=== PATIENT | female | born 1985 | race Caucasian/White ===

== ENCOUNTER 2017-01-05 20:53 | Emergency (ER) | payer OTHER ==
[~2017-01-05] VITALS: Ht 147.3 cm; Wt 57.0 kg
[~2017-01-05 20:53] MED LIST: ALPR0.25 PO; CITA-104 PO; CITA20TA11 PO; DOXY100T20 PO; ELIM TOP; HYDR-3011 PO; LAMO100T83 PO; LAMO150T15 PO; LAMO200T18 PO; LEVO25TA59 PO
[2017-01-05 21:18] VITALS: Ht 147.3 cm; Wt 57.0 kg
== END 2017-01-05 23:38 | disposition left against medical advice (07) ==
LOC: FTE 20:53
DX: Z53.21 Procedure and treatment not carried out due to patient leaving prior to being seen by health care provider (principal)

== ENCOUNTER 2017-01-08 06:40 | Emergency (ER) | payer SELFPAY ==
[~2017-01-08] VITALS: Ht 152.4 cm; Wt 56.5 kg
[2017-01-08 06:42] VITALS: Ht 152.4 cm; Wt 56.5 kg
[2017-01-08] MEDS ORDERED: TRIMETHOPRIM/SULFAMETHOX (DS) TAB PO STA (07:11)
[2017-01-08] MEDS ORDERED: SULF1TAB31 PO (07:14)
[2017-01-08] MEDS ORDERED: LAMO100T83 PO (07:14)
[2017-01-08] MEDS ORDERED: LAMOTRIGINE 25 MG TAB PO STA (07:25)
--- NOTE | 2017-01-08 07:37 | ERD ---
ER Documentation Chief Complaint Date/Time DATE: 01/08/17 TIME: 07:37 Chief Complaint anxiety, facial lesions, med refill x 5 days HPI This is a 31-year-old female with medical history of anxiety presenting to the emergency department complaining of anxiety for the fact past 5 days since she ran out of her Lamictal. Patient states that she takes Lamictal 50 mg twice a day. Patient also states that she has lesions on her face that are painful, rating it moderate in severity. Patient denies any skin popping. She denies fevers, chest pain or shortness of breath ROS All systems reviewed and are negative except as per history of present illness. Medications Home Meds Active Scripts Lamotrigine* (Lamictal*) 100 Mg Tablet, 50 MG PO BID, #60 TAB Prov:IAIN LANDERS PA-C 01/08/17 Sulfamethoxazole/Trimethoprim* (Bactrim Ds* Tablet) 1 Each Tablet, 1 TAB PO BID , #20 TAB Prov:IAIN LANDERS PA-C 01/08/17 Doxycycline Hyclate* (Doxycycline Hyclate*) 100 Mg Tablet.dr, 100 MG PO BID for 10 Days, TAB Prov:JORDAN GARCIA MD 05/03/16 Citalopram Hydrobromide* (Citalopram Hydrobromide*) 40 Mg Tablet, 40 MG PO DAILY , #30 TAB Prov:JORDAN GARCIA MD 05/03/16 Citalopram Hydrobromide* (Celexa*) 20 Mg Tablet, 20 MG PO DAILY, #30 TAB Prov:JORDAN GARCIA MD 05/03/16 Lamotrigine* (Lamictal*) 200 Mg Tablet, 200 MG PO BID for 30 Days, TAB Prov:JORDAN GARCIA MD 05/03/16 Hydroxyzine Hcl* (Hydroxyzine Hcl*) 25 Mg Tablet, 25 MG PO Q8H Y for ITCHING, # 30 TAB Prov:ESTEFANÍA HERRERA MD 12/23/15 Permethrin* (Elimite*) 5% Cr, 1 APPLIC TOP ONCE, #1 TUB Prov:ESTEFANÍA HERRERA MD 12/23/15 Reported Medications Alprazolam* (Xanax*) 0.25 Mg Tablet, 0.25 MG PO BID, TAB 12/23/15 Lamotrigine* (Lamictal*) 100 Mg Tablet, 200 MG PO BID, TAB 11/15/14 Citalopram Hydrobromide* (Citalopram Hydrobromide*) 40 Mg Tablet, 40 MG PO DAILY , TAB 11/15/14 Citalopram Hydrobromide* (Celexa*) 20 Mg Tablet, 20 MG PO DAILY, TAB 11/15/14 Levothyroxine Sodium* (Synthroid*) 25 Mcg Tablet, 25 MCG PO DAILY, TAB 06/03/14 Lamotrigine* (Lamictal*) 150 Mg Tablet, 375 MG PO DAILY, TAB 06/03/14 Allergies Allergies: Coded Allergies: No Known Allergy (Unverified , 12/23/15) PMhx/Soc History of Surgery: Yes (c/section x 2 ) Anesthesia Reaction: No Hx Neurological Disorder: Yes (FIBROMYALGIA) Hx Respiratory Disorders: No Hx Cardiac Disorders: No Hx Psychiatric Problems: Yes (ANXIETY AND DEPRESSION) Hx Miscellaneous Medical Probl: Yes (hypothyroidism) Hx Alcohol Use: No Hx Substance Use: No Hx Tobacco Use: Yes Smoking Status: Current every day smoker Physical Exam Vitals Vital Signs Date Time Temp Pulse Resp B/P Pulse Ox O2 Delivery O2 Flow Rate FiO2 01/08/17 06:42 97.7 91 19 117/72 99 Physical Exam General: WD/WN, in no apparent distress, non-toxic appearing HENT: NC/AT Eyes: Conjunctiva normal Neck: Supple Pulm: Clear to auscultation, normal labored breathing; no wheezing/rales/ rhonchi heard CV: Good capillary refill GI: Non-distended, no guarding Back: No masses Ext: No clubbing, cyanosis, or edema Neuro: Moves on all fours Skin: Erythematous papules on face Normal turgor, color, and temperature. No ulcerations or rashes noted. Psych: Clinically anxious Results 24 hrs Current Medications Medications (Trade) Dose Ordered Sig/Russell Route PRN Reason Start Time Stop Time Status Last Admin Dose Admin Trimethoprim/ Sulfamethoxazole (Bactrim (Ds)) 1 tab ONCE STAT PO 01/08/17 07:11 01/08/17 07:12 DC 01/08/17 07:22 Lamotrigine (Lamictal) 50 mg ONCE STAT PO 01/08/17 07:25 01/08/17 07:26 DC Procedures/MDM This is a 31-year-old female who is homeless presenting to the emergency department with a history of anxiety complaining of anxiety for the past 5 days since she ran out of her Lamictal 50 mg twice daily. I have refilled her prescription for her. Patient also complains of lesions on her face that are consistent with folliculitis and pimple popping. There was no evidence of facial cellulitis, lymphangitis. Patient states that usually Bactrim works for her skin issues in the past. Patient states that she has issues with money and I have looked up the $4 prescriptions from [employer] and Doxycycline is not one of the medications listed, I have given her 1 week supply for Bactrim DS. I discussed with patient to return to the ER for any worsening sinus symptoms. Discussed to follow-up with primary care physician. She understands and agrees with this plan Departure Diagnosis: Primary Impression: Anxiety Additional Impressions: Folliculitis Medication refill Condition: Stable Patient Instructions: Taking Medicine Safely, Your Body's Response to Anxiety, Anxiety Reaction, Folliculitis Additional Instructions: FOLLOW UP WITH YOUR PRIMARY CARE PHYSICIAN TOMORROW.Return to this facility if you are not improving as expected. Take all medicines as directed. Return to this facility if you are not improving as expected. IAIN LANDERS PA-C Jan 08, 2017 07:37
== END 2017-01-08 07:44 | disposition home or self-care (01) ==
LOC: FTE 06:40
DX: F41.9 Anxiety disorder, unspecified (principal); L73.9 Follicular disorder, unspecified; E03.9 Hypothyroidism, unspecified; F17.210 Nicotine dependence, cigarettes, uncomplicated; Z76.0 Encounter for issue of repeat prescription
CPT/HCPCS: 99284

== ENCOUNTER 2017-11-09 11:53 | Emergency (ER) | END 2017-11-09 12:10 | disposition home or self-care (01) ==

== ENCOUNTER 2017-11-27 02:51 | Emergency (ER) | END 2017-11-27 04:39 | disposition left against medical advice (07) ==

== ENCOUNTER 2018-01-19 09:44 | Emergency (ER) | END 2018-01-19 16:55 | disposition left against medical advice (07) ==

== ENCOUNTER 2018-03-11 00:40 | Emergency (ER) | END 2018-03-11 04:00 | disposition left against medical advice (07) ==

== ENCOUNTER 2018-03-19 00:08 | Emergency (ER) | END 2018-03-19 02:24 | disposition home or self-care (01) ==

== ENCOUNTER 2018-04-16 11:56 | Emergency (ER) | END 2018-04-16 13:03 | disposition home or self-care (01) ==

== ENCOUNTER 2018-05-13 23:30 | Emergency (ER) | END 2018-05-14 00:52 | disposition home or self-care (01) ==

== ENCOUNTER 2018-05-20 10:11 | Emergency (ER) | END 2018-05-20 12:03 | disposition home or self-care (01) ==

== ENCOUNTER 2018-06-03 14:54 | Emergency (ER) | END 2018-06-03 15:59 | disposition home or self-care (01) ==

== ENCOUNTER 2018-06-15 03:29 | Emergency (ER) | END 2018-06-15 06:00 | disposition home or self-care (01) ==

== ENCOUNTER 2018-06-26 00:08 | Emergency (ER) | END 2018-06-26 01:08 | disposition home or self-care (01) ==

== ENCOUNTER 2018-07-09 23:21 | Emergency (ER) | END 2018-07-10 04:15 | disposition left against medical advice (07) ==

== ENCOUNTER 2018-07-19 16:34 | Emergency (ER) | payer OTHER ==
[~2018-07-19] VITALS: Ht 157.5 cm; Wt 56.0 kg
[~2018-07-19 16:34] MED LIST changes: +BACITUD TOP; +CEPH-443 PO; -CITA-104 PO; +CITA40TA6 PO; +FLUC150T PO; +FLUC150T41 PO; -HYDR-3011 PO; +HYDR-843 PO; +HYDR50TA15 PO; -LAMO150T15 PO; +LAMO150T3 PO; -LAMO200T18 PO; +LAMO200T3 PO; +LAMO25TA PO; +LAMO50TA PO; +LEVO25TA PO; -LEVO25TA59 PO; +LORA-186 PO; +LORA10CA9 PO; +MICO100S4 VG; +MICO45CR73 VG; +MUPI22OI2 TOP; +ONDA4TAB8 PO; +SULF1TAB31 PO
[2018-07-19 16:39] VITALS: BP 120/78; PULSE 100; RESP 18; Ht 157.5 cm; Wt 56.0 kg
[2018-07-19] MEDS ORDERED: LAMOTRIGINE 100 MG TAB PO ONE (19:00)
[2018-07-19] MEDS ORDERED: LAMO100T83 PO (19:27)
--- NOTE | 2018-07-19 19:43 | ERD ---
ER Documentation Chief Complaint Chief Complaint LAMICTAL MED REFILL REQUEST HPI 33-year-old female patient with a past medical history of depression presents to ED wanting a medication refill for Lamictal. Reports that she is unable to get a doctor's appointment during the holidays. States that she takes Lamictal 100 mg daily. States that she has been on it for the last 15 years. Denies any chest pain, shortness of breath, nausea, vomiting, diarrhea, neck stiffness. Denies any suicidal or homicidal ideations. ROS All systems reviewed and are negative except as per history of present illness. Medications Home Meds Active Scripts Lamotrigine* (Lamictal*) 100 Mg Tablet, 100 MG PO DAILY, #20 TAB Prov:CLAUDIA ALCANTARA PA-C 07/19/18 Sulfamethoxazole/Trimethoprim* (Bactrim Ds* Tablet) 1 Each Tablet, 1 TAB PO BID, #14 TAB Prov:ESTEFANÍA HERRERA MD 07/10/18 Cephalexin* (Keflex*) 500 Mg Capsule, 500 MG PO QID for 7 Days, CAP Prov:ESTEFANÍA HERRERA MD 07/10/18 Loratadine (Loratadine) 10 Mg Capsule, 10 MG PO DAILY, #30 CAP Prov:PASILAPRISCILA BURT 06/26/18 Hydroxyzine Hcl* (Hydroxyzine Hcl*) 50 Mg Tablet, 50 MG PO Q6H PRN for ITCHING, #30 TAB Prov:PASPRISCILA RODRIGUEZ 06/26/18 Lamotrigine* (Lamictal*) 100 Mg Tablet, 100 MG PO DAILY, #14 TAB Prov:PRISCILA RIGGS 06/26/18 Cephalexin* (Keflex*) 500 Mg Capsule, 500 MG PO QID for 5 Days, CAP Prov:LORY BARRIOS PA-C 06/15/18 Doxycycline Hyclate* (Doxycycline Hyclate*) 100 Mg Tablet.dr, 100 MG PO BID for 7 Days, TAB Prov:WALTER COBIAN PA-C 06/03/18 Lamotrigine* (Lamictal*) 100 Mg Tablet, 100 MG PO DAILY for 20 Days, TAB Prov:WALTER COBIAN PA-C 05/20/18 Ondansetron Hcl* (Zofran*) 4 Mg Tablet, 4 MG PO Q6H for NAUSEA AND/OR VOMITING, #30 TAB Prov:KENDRICK COBIANABIODUN MCKEONC 05/20/18 Loratadine* (Claritin*) 10 Mg Tablet, 10 MG PO DAILY for 20 Days, TAB Prov:WALTER OCBIAN Adan MCKEONC 05/20/18 Fluconazole* (Diflucan*) 150 Mg Tablet, 150 MG PO ONCE, #1 TAB Prov:TYRONEONDINA DRAPER 05/14/18 Mupirocin* (Bactroban*) 2% -22 Gram Oint...g., 1 APPLIC TOP BID for 7 Days, EA Prov:TYRONEONDINA PA-C 05/14/18 Permethrin* (Elimite*) 5% Cr, 1 APPLIC TOP ONCE PRN for use as directed, #1 TUB Prov:TYRONEONDINA PA-C 05/14/18 Lamotrigine* (Lamictal* XR) 50 Mg Tab.er.24, 50 MG PO DAILY for 15 Days, TAB Prov:KENDRICK COBIANABIODUN MCKEONC 04/16/18 Bacitracin* (Bacitracin Oint (UD)*) 1 Applic Oint, 1 APPLIC TOP ONCE, #10 PKT APPLY TO Prov:KENDRICK COBIANABIODUN MCKEONC 04/16/18 Miconazole Nitrate (Miconazole 7) 100 Mg Supp.vag, 100 MG VG QHS, #7 SUPP.VAG Prov:DERICK RIGGINS PA-C 03/19/18 Fluconazole* (Diflucan*) 150 Mg Tablet, 150 MG PO ONCE, #1 TAB Prov:DERICK RIGGINS PA-C 03/19/18 Cephalexin* (Keflex*) 500 Mg Capsule, 500 MG PO QID for 7 Days, CAP Prov:DERICK RIGGINS PA-C 03/19/18 Sulfamethoxazole/Trimethoprim* (Bactrim Ds* Tablet) 1 Each Tablet, 1 TAB PO BID, #14 TAB Prov:DERICK RIGGINS PA-C 03/19/18 Lamotrigine* (Lamictal* ODT) 25 Mg Tab.rapdis, 50 MG PO BID, #40 TAB Prov:DERICK RIGGINS PA-C 03/19/18 Lamotrigine* (Lamictal* XR) 50 Mg Tab.er.24, 50 MG PO DAILY, #15 TAB Prov:ESTEFANÍA HERRERA MD 01/09/18 Fluconazole* (Fluconazole*) 150 Mg Tablet, 150 MG PO DAILY, #1 TAB Prov:DERICK RIGGINS PA-C 11/09/17 Lamotrigine* (Lamictal* XR) 50 Mg Tab.er.24, 50 MG PO DAILY, #60 TAB Prov:DERICK RIGGINS PA-C 11/09/17 Miconazole Nitrate (Miconazole-7) 45 Gm Cr, 1 APPLIC VG QHS, #1 KIT Prov:DERICK RIGGINS PA-C 11/09/17 Lamotrigine* (Lamictal*) 100 Mg Tablet, 50 MG PO BID, #60 TAB Prov:IAIN LANDERS PA-C 01/08/17 Sulfamethoxazole/Trimethoprim* (Bactrim Ds* Tablet) 1 Each Tablet, 1 TAB PO BID, #20 TAB Prov:IAIN LANDERS PA-C 01/08/17 Doxycycline Hyclate* (Doxycycline Hyclate*) 100 Mg Tablet.dr, 100 MG PO BID for 10 Days, TAB Prov:JORDAN GARCIA MD 05/03/16 Citalopram Hydrobromide* (Citalopram Hydrobromide*) 40 Mg Tablet, 40 MG PO ASTER Y, #30 TAB Prov:JORDAN GARCIA MD 05/03/16 Citalopram Hydrobromide* (Celexa*) 20 Mg Tablet, 20 MG PO DAILY, #30 TAB Prov:JORDAN GARCIA MD 05/03/16 Lamotrigine* (Lamictal*) 200 Mg Tablet, 200 MG PO BID for 30 Days, TAB Prov:JORDAN GARCIA MD 05/03/16 Hydroxyzine Hcl* (Hydroxyzine Hcl*) 25 Mg Tablet, 25 MG PO Q8H PRN for ITCHING, #30 TAB Prov:ESTEFANÍA HERRERA MD 12/23/15 Permethrin* (Elimite*) 5% Cr, 1 APPLIC TOP ONCE, #1 TUB Prov:ESTEFANÍA HERRERA MD 12/23/15 Reported Medications Alprazolam* (Xanax*) 0.25 Mg Tablet, 0.25 MG PO BID, TAB 12/23/15 Lamotrigine* (Lamictal*) 100 Mg Tablet, 200 MG PO BID, TAB 11/15/14 Citalopram Hydrobromide* (Citalopram Hydrobromide*) 40 Mg Tablet, 40 MG PO DAILY, TAB 11/15/14 Citalopram Hydrobromide* (Celexa*) 20 Mg Tablet, 20 MG PO DAILY, TAB 11/15/14 Levothyroxine Sodium* (Synthroid*) 25 Mcg Tablet, 25 MCG PO DAILY, TAB 06/03/14 Lamotrigine* (Lamictal*) 150 Mg Tablet, 375 MG PO DAILY, TAB 06/03/14 Allergies Allergies: Coded Allergies: clindamycin (Verified Allergy, Unknown, 01/09/18) PMhx/Soc History of Surgery: Yes (c section) Anesthesia Reaction: No Hx Neurological Disorder: No Hx Respiratory Disorders: No Hx Cardiac Disorders: No Hx Psychiatric Problems: Yes (Psychiatric disorders) Hx Miscellaneous Medical Probl: No Hx Alcohol Use: No Hx Substance Use: Yes (History of heroin abuse, currently enrolled in ) Hx Tobacco Use: No Smoking Status: Never smoker FmHx Family History: No diabetes, No coronary disease Physical Exam Vitals Vital Signs Date Temp Pulse Resp B/P (MAP) Pulse Ox O2 O2 Flow FiO2 Time Delivery Rate 07/19/18 98.6 100 18 120/78 99 16:39 (92) Physical Exam Const: Aau-dns-gswipryny, well-nourished. In no acute distress. Head: Atraumatic, normocephalic Eyes: Normal Conjunctiva without injection ENT: Normal external ear, nose and mouth. Neck: Full range of motion. No meningismus. Resp: Clear to auscultation bilaterally. No wheezing, rhonchi, rales, or broomcorn scraper ckles. No accessory muscle use. No retractions. Cardio: Regular rate and rhythm, no murmurs Skin: No petechiae or rashes Back: No midline tenderness. No CVA tenderness. Ext: No cyanosis, or edema. Cap refill less than 2 seconds. Distal pulses intact bilaterally. Neur: Awake and alert. Normal gait and coordination. Muscle strength 5/5. Sensation intact bilaterally. Psych: Normal Mood and Affect Results 24 hrs Current Medications Medications Dose Sig/Russell Start Time Status Last (Trade) Ordered Route PRN Stop Time Admin Dose Reason Admin Lamotrigine 100 mg ONCE ONCE 07/19/18 DC 07/19/18 (Lamictal) PO 19:00 19:39 07/19/18 19:01 Procedures/MDM 33-year-old female patient with no significant past medical history presents to the ED complaining of wanting a medication refill for her Lamictal. Patient is afebrile and nontoxic-appearing. Patient was given 1 dose of Lamictal 400 mg here in the ED. Low suspicion for acute myocardial infarction, pneumothorax, pericarditis, myocarditis, endocarditis, pneumonia, cardiac tamponade, pulmonary embolism, pleural effusion, AAA, aortic dissection, Boerhaave's syndrome, cardiac dysrhythmias,meningitis, intracranial bleed, seizure, stroke, TIA or other emergent conditions. Diagnosis: Encounter for medication refill Discharge medications: Lamictal Follow up with primary care physician in 1-2 days. Instructed patient to return to the ED sooner for any worsening symptoms. Patient's questions were answered. Patient is hemodynamically stable. Patient understood and agreed with discharge plan. Patient discharged stable. Disclaimer: Inadvertent spelling and grammatical errors are likely due to EHR/dictation software use and do not reflect on the overall quality of patient care. Also, please note that the electronic time recorded on this note does not necessarily reflect the actual time of the patient encounter. Departure Diagnosis: Primary Impression: Encounter for medication refill Condition: Stable Patient Instructions: Taking Medicine Safely Referrals: [facility] (PCP) [facility] YOU HAVE RECEIVED A MEDICAL SCREENING EXAM AND THE RESULTS INDICATE THAT YOU DO NOT HAVE A CONDITION THAT REQUIRES URGENT TREATMENT IN THE EMERGENCY DEPARTMENT. FURTHER EVALUATION AND TREATMENT OF YOUR CONDITION CAN WAIT UNTIL YOU ARE SEEN IN YOUR DOCTORS OFFICE WITHIN THE NEXT 1-2 DAYS. IT IS YOUR RESPONSIBILITY TO MAKE AN APPOINTMENT FOR FOLOW-UP CARE. IF YOU HAVE A PRIMARY DOCTOR --you should call your primary doctor and schedule an appointment IF YOU DO NOT HAVE A PRIMARY DOCTOR YOU CAN CALL OUR PHYSICIAN REFERRAL HOTLINE AT IF YOU CAN NOT AFFORD TO SEE A PHYSICIAN YOU CAN CHOSE FROM THE FOLLOWING [facility] CLINICS [facility] [address] [place] [address] [facility] [address] [place] [address] [facility] [address] [facility] [address] [facility] [address] [facility]. [facility] [address] [facility]. [facility] YOU HAVE RECEIVED A MEDICAL SCREENING EXAM AND THE RESULTS INDICATE THAT YOU DO NOT HAVE A CONDITION THAT REQUIRES URGENT TREATMENT IN THE EMERGENCY DEPARTMENT. FURTHER EVALUATION AND TREATMENT OF YOUR CONDITION CAN WAIT UNTIL YOU ARE SEEN IN YOUR DOCTORS OFFICE WITHIN THE NEXT 1-2 DAYS. IT IS YOUR RESPONSIBILITY TO MAKE AN APPOINTMENT FOR FOLOW-UP CARE. IF YOU HAVE A PRIMARY DOCTOR --you should call your primary doctor and schedule and appointment IF YOU DO NOT HAVE A PRIMARY DOCTOR YOU CAN CALL OUR PHYSICIAN REFERRAL HOTLINE AT . IF YOU CAN NOT AFFORD TO SEE A PHYSICIAN YOU CAN CHOSE FROM THE FOLLOWING [facility]: [facility] [address] [place] [address] [facility] [address] [place] [address] [facility] [address] [place] [address] [facility] URGENT CARE/SPECIALTIES Additional Instructions: Call your primary care doctor TOMORROW for an appointment during the next 2-3 days.See the doctor sooner or return here if your condition worsens before your appointment time. CLAUDIA ALCANTARA PA-C Jul 19, 2018 19:43
== END 2018-07-19 19:41 | disposition home or self-care (01) ==
LOC: FTE 16:34
DX: Z76.0 Encounter for issue of repeat prescription (principal)
CPT/HCPCS: Z7502; Z7610; 99281

== ENCOUNTER 2018-08-14 12:33 | Emergency (ER) | payer OTHER ==
[~2018-08-14] VITALS: Ht 152.4 cm; Wt 58.0 kg
[2018-08-14 12:45] VITALS: Ht 152.4 cm; Wt 58.0 kg
[2018-08-14] MEDS ORDERED: MUPIROCIN 2% 22 GM OINT TOP ONE (14:30)
[2018-08-14] MEDS ORDERED: SULF1TAB31 PO (14:32)
[2018-08-14] MEDS ORDERED: CEPH-443 PO (14:32)
[2018-08-14] MEDS ORDERED: LAMO100T83 PO (15:08)
--- NOTE | 2018-08-14 20:29 | ERD ---
ER Documentation Chief Complaint Chief Complaint Lesion@ facial area HPI 33-year-old presents for left face skin lesion times 2 days. She denies any fevers. She denies any pain over the lesions. She also has history of bipolar disorder and requests refill on her Lamictal. No other complaints noted. ROS All systems reviewed and are negative except as per history of present illness. Medications Home Meds Active Scripts Diphenhydramine Hcl* (Benadryl*) 25 Mg Cap, 25 MG PO Q6 PRN for ITCHING/RASH, #30 TAB Prov:PRISCILA RIGGS F 08/18/18 Lamotrigine* (Lamictal*) 100 Mg Tablet, 100 MG PO DAILY for bipolar, #30 TAB Prov:MARIFERERMIAS GOULD 08/14/18 Sulfamethoxazole/Trimethoprim* (Bactrim Ds* Tablet) 1 Each Tablet, 1 TAB PO BID for 7 Days, #14 TAB Prov:ERMIAS CAICEDO DO 08/14/18 Cephalexin* (Keflex*) 500 Mg Capsule, 500 MG PO TID for skin infection for 7 Days, CAP Prov:ERMIAS CAICEDO DO 08/14/18 Lamotrigine* (Lamictal*) 100 Mg Tablet, 100 MG PO DAILY, #20 TAB Prov:CLAUDIA ALCANTARA PA-C 07/19/18 Sulfamethoxazole/Trimethoprim* (Bactrim Ds* Tablet) 1 Each Tablet, 1 TAB PO BID, #14 TAB Prov:ESTEFANÍA HERRERA MD 07/10/18 Cephalexin* (Keflex*) 500 Mg Capsule, 500 MG PO QID for 7 Days, CAP Prov:ESTEFANÍA HERRERA MD 07/10/18 Loratadine (Loratadine) 10 Mg Capsule, 10 MG PO DAILY, #30 CAP Prov:PASILAPRISCILA BURT F 06/26/18 Hydroxyzine Hcl* (Hydroxyzine Hcl*) 50 Mg Tablet, 50 MG PO Q6H PRN for ITCHING, #30 TAB Prov:ZACHARYILAPRISCILA BURT F 06/26/18 Lamotrigine* (Lamictal*) 100 Mg Tablet, 100 MG PO DAILY, #14 TAB Prov:PASILATONEY BURTAR F 06/26/18 Cephalexin* (Keflex*) 500 Mg Capsule, 500 MG PO QID for 5 Days, CAP Prov:LORY BARRIOS PA-C 06/15/18 Doxycycline Hyclate* (Doxycycline Hyclate*) 100 Mg Tablet.dr, 100 MG PO BID for 7 Days, TAB Prov:WALTER COBIAN PA-C 06/03/18 Lamotrigine* (Lamictal*) 100 Mg Tablet, 100 MG PO DAILY for 20 Days, TAB Prov:WALTER COBIAN PA-C 05/20/18 Ondansetron Hcl* (Zofran*) 4 Mg Tablet, 4 MG PO Q6H for NAUSEA AND/OR VOMITING, #30 TAB Prov:WALTER COBIAN PA-C 05/20/18 Loratadine* (Claritin*) 10 Mg Tablet, 10 MG PO DAILY for 20 Days, TAB Prov:WALTER COBIAN PA-C 05/20/18 Fluconazole* (Diflucan*) 150 Mg Tablet, 150 MG PO ONCE, #1 TAB Prov:ONDINA HANSEN PA-C 05/14/18 Mupirocin* (Bactroban*) 2% -22 Gram Oint...g., 1 APPLIC TOP BID for 7 Days, EA Prov:ONDINA HANSEN PA-C 05/14/18 Permethrin* (Elimite*) 5% Cr, 1 APPLIC TOP ONCE PRN for use as directed, #1 TUB Prov:ONDINA HANSEN PA-C 05/14/18 Lamotrigine* (Lamictal* XR) 50 Mg Tab.er.24, 50 MG PO DAILY for 15 Days, TAB Prov:WALTER COBIAN PA-C 04/16/18 Bacitracin* (Bacitracin Oint (UD)*) 1 Applic Oint, 1 APPLIC TOP ONCE, #10 PKT APPLY TO Prov:WALTER COBIAN PA-C 04/16/18 Miconazole Nitrate (Miconazole 7) 100 Mg Supp.vag, 100 MG VG QHS, #7 SUPP.VAG Prov:DERICK RIGGINS PA-C 03/19/18 Fluconazole* (Diflucan*) 150 Mg Tablet, 150 MG PO ONCE, #1 TAB Prov:DERICK RIGGINS PA-C 03/19/18 Cephalexin* (Keflex*) 500 Mg Capsule, 500 MG PO QID for 7 Days, CAP Prov:DERICK RIGGINS PA-C 03/19/18 Sulfamethoxazole/Trimethoprim* (Bactrim Ds* Tablet) 1 Each Tablet, 1 TAB PO BID, #14 TAB Prov:DERICK RIGGINS PA-C 03/19/18 Lamotrigine* (Lamictal* ODT) 25 Mg Tab.rapdis, 50 MG PO BID, #40 TAB Prov:DERICK RIGGINS PA-C 03/19/18 Lamotrigine* (Lamictal* XR) 50 Mg Tab.er.24, 50 MG PO DAILY, #15 TAB Prov:ESTEFANÍA HERRERA MD 01/09/18 Fluconazole* (Fluconazole*) 150 Mg Tablet, 150 MG PO DAILY, #1 TAB Prov:DERICK RIGGINS PA-C 11/09/17 Lamotrigine* (Lamictal* XR) 50 Mg Tab.er.24, 50 MG PO DAILY, #60 TAB Prov:DERICK RIGGINS PA-C 11/09/17 Miconazole Nitrate (Miconazole-7) 45 Gm Cr, 1 APPLIC VG QHS, #1 KIT Prov:DERICK RIGGINS PA-C 11/09/17 Lamotrigine* (Lamictal*) 100 Mg Tablet, 50 MG PO BID, #60 TAB Prov:IAIN LANDERS PA-C 01/08/17 Sulfamethoxazole/Trimethoprim* (Bactrim Ds* Tablet) 1 Each Tablet, 1 TAB PO BID, #20 TAB Prov:IAIN LANDERSC 01/08/17 Doxycycline Hyclate* (Doxycycline Hyclate*) 100 Mg Tablet.dr, 100 MG PO BID for 10 Days, TAB Prov:JORDAN GARCIA MD 05/03/16 Citalopram Hydrobromide* (Citalopram Hydrobromide*) 40 Mg Tablet, 40 MG PO DAILY, #30 TAB Prov:JORDAN GARCIA MD 05/03/16 Citalopram Hydrobromide* (Celexa*) 20 Mg Tablet, 20 MG PO DAILY, #30 TAB Prov:JORDAN GARCIA MD 05/03/16 Lamotrigine* (Lamictal*) 200 Mg Tablet, 200 MG PO BID for 30 Days, TAB Prov:JORDAN GARCIA MD 05/03/16 Hydroxyzine Hcl* (Hydroxyzine Hcl*) 25 Mg Tablet, 25 MG PO Q8H PRN for ITCHING, #30 TAB Prov:ESTEFANÍA HERRERA MD 12/23/15 Permethrin* (Elimite*) 5% Cr, 1 APPLIC TOP ONCE, #1 TUB Prov:ESTEFANÍA HERRERA MD 12/23/15 Reported Medications Alprazolam* (Xanax*) 0.25 Mg Tablet, 0.25 MG PO BID, TAB 12/23/15 Lamotrigine* (Lamictal*) 100 Mg Tablet, 200 MG PO BID, TAB 11/15/14 Citalopram Hydrobromide* (Citalopram Hydrobromide*) 40 Mg Tablet, 40 MG PO DAILY, TAB 11/15/14 Citalopram Hydrobromide* (Celexa*) 20 Mg Tablet, 20 MG PO DAILY, TAB 11/15/14 Levothyroxine Sodium* (Synthroid*) 25 Mcg Tablet, 25 MCG PO DAILY, TAB 06/03/14 Lamotrigine* (Lamictal*) 150 Mg Tablet, 375 MG PO DAILY, TAB 06/03/14 Allergies Allergies: Coded Allergies: clindamycin (Verified Allergy, Unknown, 01/09/18) PMhx/Soc History of Surgery: Yes (c section X 2) Anesthesia Reaction: No Hx Neurological Disorder: No Hx Respiratory Disorders: No Hx Cardiac Disorders: No Hx Psychiatric Problems: Yes (Psychiatric disorders/MOOD DISORDER) Hx Miscellaneous Medical Probl: No Hx Alcohol Use: No Hx Substance Use: Yes (History of heroin abuse, currently enrolled in .LAST WAS 3 MOS AGO) Hx Tobacco Use: No Physical Exam Vitals Vital Signs Date Temp Pulse Resp B/P (MAP) Pulse Ox O2 O2 Flow FiO2 Time Delivery Rate 08/14/18 97.0 98 19 115/76 100 12:45 (89) Physical Exam Const: No acute distress Neck: Full range of motion. No meningismus. Resp: Clear to auscultation bilaterally Cardio: Regular rate and rhythm, no murmurs Abd: Soft, non tender, non distended. Normal bowel sounds Skin: Multiple skin lesions noted, circular, small 0.5 cm abscess with mild underlying fluctuance Back: No midline or flank tenderness Ext: No cyanosis, or edema Neur: Awake and alert Psych: Normal Mood and Affect Results 24 hrs Current Medications Medications Dose Sig/Russell Start Time Status Last (Trade) Ordered Route PRN Stop Time Admin Dose Reason Admin Mupirocin 1 applic ONCE ONCE 08/14/18 DC (Bactroban) TOP 14:30 08/14/18 14:31 Procedures/MDM Medical Decision Making: Differential diagnosis includes but not limited to staph skin infection, abscess, contact dermatitis, atopic dermatitis Patient appeared well on physical exam. There is small several skin lesions on the patient's face consistent with staph infection. There is also a small 0.5 cm area with mild underlying fluctuance consistent with an abscess. The abscess was however too small to drain. A trial of antibiotics will be given. Patient agrees with plan. ED course: Patient skin lesions were irrigated and Bactroban applied Prescription(s): Patient given prescription for Bactrim and Keflex. Patient also given refill for her Lamictal for bipolar disorder. Patient advised to return to the ER in 48 hours for wound check. Patient advised to follow up with PCP in 1-2 days. Patient advised to return to ED for new or worsening symptoms. Patient stable on discharge from the ED. Disclaimer: Inadvertent spelling and grammatical errors are likely due to EHR/dictation software use and do not reflect on the overall quality of patient care. Also, please note that the electronic time recorded on this note does not necessarily reflect the actual time of the patient encounter. Departure Diagnosis: Primary Impression: Abscess Additional Impression: Staph infection Condition: Fair Patient Instructions: Abscess, Antiobiotic Treatment Only Additional Instructions: Call your primary care doctor TOMORROW for an appointment during the next 1-2 days.See the doctor sooner or return here if your condition worsens before your appointment time. Return in ED in 2 days for wound check ERMIAS CAICEDO DO Aug 14, 2018 20:29
== END 2018-08-14 15:05 | disposition home or self-care (01) ==
LOC: FTE 12:33
DX: L02.01 Cutaneous abscess of face (principal); B95.8 Unspecified staphylococcus as the cause of diseases classified elsewhere
CPT/HCPCS: Z7502; Z7610; 99283

== ENCOUNTER 2018-08-18 03:08 | Emergency (ER) | payer OTHER ==
[~2018-08-18] VITALS: Ht 152.4 cm; Wt 58.6 kg
[2018-08-18 03:12] VITALS: BP 131/91; PULSE 102; RESP 17; Ht 152.4 cm; Wt 58.6 kg
--- NOTE | 2018-08-18 04:04 | ERD ---
ER Documentation Chief Complaint Chief Complaint C/O ABSCESS ON LT CHECK AND RT ANKLE X3 DAYS, TOOTH ACHE X1 DAY HPI This is a 33-year-old female who presents emergency department with complaints of multiple sores. Stated that she was here 2 days ago and was prescribed with Keflex and Bactrim. LMP: 20 days ago. Denies possibility being . 82. Denies headache, head injury, loss of consciousness, dizziness, neck pain, neck stiffness, throat pain, difficulty swallowing, difficulty breathing lying flat, shoulder pain, chest pain, back pain, abdominal pain, nausea, vomiting, constipation, diarrhea, urinary symptoms, or possibility being , loss of bowel and bladder control, trauma, injury, falls, difficulty walking due to pain, numbness or tingling sensation, calf pain, recent travel, recent major surgery in the last 3 weeks, calf pain, recent long travel, recent exposure to any illness, recent antibiotic use in the last 3 months, fever, chills, seizures. Past medical history: Heroin use. Last heroin dose was couple of months ago. Surgical history: x2. Social: Denies smoking, use of alcoholic beverages, use of illegal drugs. ROS All systems reviewed and are negative except as per history of present illness. Medications Home Meds Active Scripts Diphenhydramine Hcl* (Benadryl*) 25 Mg Cap, 25 MG PO Q6 PRN for ITCHING/RASH, #30 TAB Prov:PRISCILA RIGGS 08/18/18 Lamotrigine* (Lamictal*) 100 Mg Tablet, 100 MG PO DAILY for bipolar, #30 TAB Prov:ERMIAS CAICEDO DO 08/14/18 Sulfamethoxazole/Trimethoprim* (Bactrim Ds* Tablet) 1 Each Tablet, 1 TAB PO BID for 7 Days, #14 TAB Prov:ERMIAS CAICEDO DO 08/14/18 Cephalexin* (Keflex*) 500 Mg Capsule, 500 MG PO TID for skin infection for 7 Days, CAP Prov:ERMIAS CAICEDO DO 08/14/18 Lamotrigine* (Lamictal*) 100 Mg Tablet, 100 MG PO DAILY, #20 TAB Prov:CLAUDIA ALCANTARA PA-C 07/19/18 Sulfamethoxazole/Trimethoprim* (Bactrim Ds* Tablet) 1 Each Tablet, 1 TAB PO BID, #14 TAB Prov:ESTEFANÍA HERRERA MD 07/10/18 Cephalexin* (Keflex*) 500 Mg Capsule, 500 MG PO QID for 7 Days, CAP Prov:ESTEFANÍA HERRERA MD 07/10/18 Loratadine (Loratadine) 10 Mg Capsule, 10 MG PO DAILY, #30 CAP Prov:ZACHARYILAPRISCILA BURT 06/26/18 Hydroxyzine Hcl* (Hydroxyzine Hcl*) 50 Mg Tablet, 50 MG PO Q6H PRN for ITCHING, #30 TAB Prov:PASILAPRISCILA BURT 06/26/18 Lamotrigine* (Lamictal*) 100 Mg Tablet, 100 MG PO DAILY, #14 TAB Prov:ZACHARYILAPRISCILA BURT 06/26/18 Cephalexin* (Keflex*) 500 Mg Capsule, 500 MG PO QID for 5 Days, CAP Prov:LORY BARRIOS PA-C 06/15/18 Doxycycline Hyclate* (Doxycycline Hyclate*) 100 Mg Tablet.dr, 100 MG PO BID for 7 Days, TAB Prov:WALTER COBIAN PA-C 06/03/18 Lamotrigine* (Lamictal*) 100 Mg Tablet, 100 MG PO DAILY for 20 Days, TAB Prov:WALTER COBIAN PA-C 05/20/18 Ondansetron Hcl* (Zofran*) 4 Mg Tablet, 4 MG PO Q6H for NAUSEA AND/OR VOMITING, #30 TAB Prov:WALTER COBIAN PA-C 05/20/18 Loratadine* (Claritin*) 10 Mg Tablet, 10 MG PO DAILY for 20 Days, TAB Prov:WALTER COBIAN PA-C 05/20/18 Fluconazole* (Diflucan*) 150 Mg Tablet, 150 MG PO ONCE, #1 TAB Prov:ONDINA HANSEN PA-C 05/14/18 Mupirocin* (Bactroban*) 2% -22 Gram Oint...g., 1 APPLIC TOP BID for 7 Days, EA Prov:ONDINA HANSEN PA-C 05/14/18 Permethrin* (Elimite*) 5% Cr, 1 APPLIC TOP ONCE PRN for use as directed, #1 TUB Prov:ONDINA HANSEN PA-C 05/14/18 Lamotrigine* (Lamictal* XR) 50 Mg Tab.er.24, 50 MG PO DAILY for 15 Days, TAB Prov:WALTER COBIAN PA-C 04/16/18 Bacitracin* (Bacitracin Oint (UD)*) 1 Applic Oint, 1 APPLIC TOP ONCE, #10 PKT APPLY TO Prov:WALTER COBIAN PA-C 04/16/18 Miconazole Nitrate (Miconazole 7) 100 Mg Supp.vag, 100 MG VG QHS, #7 SUPP.VAG Prov:DERICK RIGGINS PA-C 03/19/18 Fluconazole* (Diflucan*) 150 Mg Tablet, 150 MG PO ONCE, #1 TAB Prov:DERICK RIGGINS PA-C 03/19/18 Cephalexin* (Keflex*) 500 Mg Capsule, 500 MG PO QID for 7 Days, CAP Prov:DERICK RIGGINS PA-C 03/19/18 Sulfamethoxazole/Trimethoprim* (Bactrim Ds* Tablet) 1 Each Tablet, 1 TAB PO BID, #14 TAB Prov:DERICK RIGGINS PA-C 03/19/18 Lamotrigine* (Lamictal* ODT) 25 Mg Tab.rapdis, 50 MG PO BID, #40 TAB Prov:DERICK RIGGINS PA-C 03/19/18 Lamotrigine* (Lamictal* XR) 50 Mg Tab.er.24, 50 MG PO DAILY, #15 TAB Prov:ESTEFANÍA HERRERA MD 01/09/18 Fluconazole* (Fluconazole*) 150 Mg Tablet, 150 MG PO DAILY, #1 TAB Prov:DERICK RIGGINS PA-C 11/09/17 Lamotrigine* (Lamictal* XR) 50 Mg Tab.er.24, 50 MG PO DAILY, #60 TAB Prov:DERICK RIGGINS PA-C 11/09/17 Miconazole Nitrate (Miconazole-7) 45 Gm Cr, 1 APPLIC VG QHS, #1 KIT Prov:DERICK RIGGINS PA-C 11/09/17 Lamotrigine* (Lamictal*) 100 Mg Tablet, 50 MG PO BID, #60 TAB Prov:IAIN LANDERS PA-C 01/08/17 Sulfamethoxazole/Trimethoprim* (Bactrim Ds* Tablet) 1 Each Tablet, 1 TAB PO BID, #20 TAB Prov:IAIN LANDERS PA-C 01/08/17 Doxycycline Hyclate* (Doxycycline Hyclate*) 100 Mg Tablet.dr, 100 MG PO BID for 10 Days, TAB Prov:JORDAN GARCIA MD 05/03/16 Citalopram Hydrobromide* (Citalopram Hydrobromide*) 40 Mg Tablet, 40 MG PO DAILY, #30 TAB Prov:JORDAN GARCIA MD 05/03/16 Citalopram Hydrobromide* (Celexa*) 20 Mg Tablet, 20 MG PO DAILY, #30 TAB Prov:JORDAN GARCIA MD 05/03/16 Lamotrigine* (Lamictal*) 200 Mg Tablet, 200 MG PO BID for 30 Days, TAB Prov:JORDAN GARCIA MD 05/03/16 Hydroxyzine Hcl* (Hydroxyzine Hcl*) 25 Mg Tablet, 25 MG PO Q8H PRN for ITCHING, #30 TAB Prov:ESTEFANÍA HERRERA MD 12/23/15 Permethrin* (Elimite*) 5% Cr, 1 APPLIC TOP ONCE, #1 TUB Prov:ESTEFANÍA HERRERA MD 12/23/15 Reported Medications Alprazolam* (Xanax*) 0.25 Mg Tablet, 0.25 MG PO BID, TAB 12/23/15 Lamotrigine* (Lamictal*) 100 Mg Tablet, 200 MG PO BID, TAB 11/15/14 Citalopram Hydrobromide* (Citalopram Hydrobromide*) 40 Mg Tablet, 40 MG PO DAILY, TAB 11/15/14 Citalopram Hydrobromide* (Celexa*) 20 Mg Tablet, 20 MG PO DAILY, TAB 11/15/14 Levothyroxine Sodium* (Synthroid*) 25 Mcg Tablet, 25 MCG PO DAILY, TAB 06/03/14 Lamotrigine* (Lamictal*) 150 Mg Tablet, 375 MG PO DAILY, TAB 06/03/14 Allergies Allergies: Coded Allergies: clindamycin (Verified Allergy, Unknown, 01/09/18) PMhx/Soc History of Surgery: Yes (c section X 2) Anesthesia Reaction: No Hx Neurological Disorder: No Hx Respiratory Disorders: No Hx Cardiac Disorders: No Hx Psychiatric Problems: Yes (Psychiatric disorders/MOOD DISORDER) Hx Miscellaneous Medical Probl: No Hx Alcohol Use: No Hx Substance Use: Yes (History of heroin abuse, currently enrolled in AA.LAST WAS 3 MOS AGO) Hx Tobacco Use: No Physical Exam Vitals Vital Signs Date Temp Pulse Resp B/P (MAP) Pulse Ox O2 O2 Flow FiO2 Time Delivery Rate 08/18/18 97.6 102 17 131/91 100 03:12 (104) Physical Exam Const: No acute distress Head: Atraumatic Eyes: Normal Conjunctiva ENT: Normal External Ears, Nose and Mouth. Neck: Full range of motion. No meningismus. Resp: Clear to auscultation bilaterally Cardio: Regular rate and rhythm, no murmurs Abd: Soft, non tender, non distended. Normal bowel sounds Skin: No petechiae or rashes. Multiple circular sores noted to bilateral lower extremities that has yellowish at the middle. No induration. Back: No midline or flank tenderness Ext: No cyanosis, or edema Neur: Awake and alert. No neurological deficits. Psych: Normal Mood and Affect Results 24 hrs Current Medications Medications Dose Sig/Russell Start Time Status Last (Trade) Ordered Route PRN Stop Time Admin Dose Reason Admin Ceftriaxone 1 gm ONCE ONCE 08/18/18 DC 08/18/18 Sodium IM 04:30 04:20 (Rocephin) 08/18/18 04:30 Lidocaine 20 ml ONCE ONCE 08/18/18 DC 08/18/18 (Xylocaine SC 04:30 04:20 1% (Mdv) 20 08/18/18 04:30 ml) Procedures/MDM Diagnostic tests: Clinical exam. Treatment: Ceftriaxone IM. Re-evaluation: No allergic reaction noted. Differential diagnosis I have low suspicion for sepsis, severe serious bacterial infection, shingles, Barber-Pro syndrome. Final diagnosis: Skin infection. Prescription: Continue taking your Bactrim and Keflex at home. Follow-up with PCP in the next 24-48 hours. Continue to take your Bactrim and Keflex at home. Come back here in the emergency department for any new symptoms or any worsening symptoms. All questions and concerns were answered. Patient and family members verbalized understanding and agreed with plan of care. Hemodynamically stable on discharge. Departure Diagnosis: Primary Impression: Multiple complaints Additional Impression: Skin infection Condition: Stable Additional Instructions: Follow-up with PCP in the next 24-48 hours. Continue to take your Bactrim and Keflex at home. Come back here in the emergency department for any new symptoms or any worsening symptoms. PRISCILA RIGGS Aug 18, 2018 04:04
[2018-08-18] MEDS ORDERED: BEN25 PO (04:13)
[2018-08-18] MEDS ORDERED: CEFTRIAXONE 1 GM INJ IM ONE (04:30)
[2018-08-18] MEDS ORDERED: LIDOCAINE 1% (MDV) 20 ML INJ SC ONE (04:30)
== END 2018-08-18 04:22 | disposition home or self-care (01) ==
LOC: FTE 03:08
DX: K08.89 Other specified disorders of teeth and supporting structures (principal); L08.9 Local infection of the skin and subcutaneous tissue, unspecified; L02.415 Cutaneous abscess of right lower limb; L02.01 Cutaneous abscess of face
CPT/HCPCS: 96372; J0696; Z7502; Z7610

== ENCOUNTER 2018-09-22 15:48 | Emergency (ER) | payer SELFPAY ==
[~2018-09-22] VITALS: Wt 58.2 kg
[~2018-09-22 15:48] MED LIST changes: +BEN25 PO
[2018-09-22 16:38] VITALS: BP 113/57; PULSE 56; RESP 16
== END 2018-09-22 20:35 | disposition left against medical advice (07) ==
LOC: FTE 15:48
DX: Z53.21 Procedure and treatment not carried out due to patient leaving prior to being seen by health care provider (principal)

== ENCOUNTER 2018-10-04 00:27 | Emergency (ER) | payer SELFPAY ==
[~2018-10-04] VITALS: Ht 152.4 cm; Wt 55.8 kg
[2018-10-04 00:32] VITALS: BP 123/67; PULSE 95; RESP 18; Ht 152.4 cm; Wt 55.8 kg
[2018-10-04] MEDS ORDERED: LAMO100T83 PO (08:15)
== END 2018-10-04 05:05 | disposition left against medical advice (07) ==
LOC: FTE 00:27
DX: Z53.21 Procedure and treatment not carried out due to patient leaving prior to being seen by health care provider (principal)

== ENCOUNTER 2018-10-04 07:54 | Emergency (ER) | payer OTHER ==
[~2018-10-04] VITALS: Ht 157.5 cm; Wt 55.6 kg
[2018-10-04 07:55] VITALS: BP 130/58; PULSE 70; RESP 18; Ht 157.5 cm; Wt 55.6 kg
[2018-10-04] MEDS ORDERED: LAMO100T83 PO (08:15)
[2018-10-04] MEDS ORDERED: LAMOTRIGINE 100 MG TAB PO ONE (08:30)
--- NOTE | 2018-10-04 08:34 | ERD ---
ER Documentation Chief Complaint Chief Complaint for med refill on lamictal HPI 33-year-old female presenting for medication refill of Lamictal. Patient states that she is homeless and she has been unable to follow-up with her primary doctor. She has not had her Lamictal over the last 4 days and states that she has no suicidal or homicidal ideation. Patient has a history of hypothyroidism however no longer takes Synthroid. She is allergic to clindamycin. Smokes 4 cigarettes a day. Drug use denies. Surgical history . ROS All systems reviewed and are negative except as per history of present illness. Medications Home Meds Active Scripts Lamotrigine* (Lamictal*) 100 Mg Tablet, 100 MG PO DAILY, #30 TAB Prov:DERICK RIGGINS PA-C 10/04/18 Diphenhydramine Hcl* (Benadryl*) 25 Mg Cap, 25 MG PO Q6 PRN for ITCHING/RASH, #30 TAB Prov:PRISCILA RIGGS 08/18/18 Lamotrigine* (Lamictal*) 100 Mg Tablet, 100 MG PO DAILY for bipolar, #30 TAB Prov:ERMIAS CAICEDO DO 08/14/18 Sulfamethoxazole/Trimethoprim* (Bactrim Ds* Tablet) 1 Each Tablet, 1 TAB PO BID for 7 Days, #14 TAB Prov:ERMIAS CAICEDO DO 08/14/18 Cephalexin* (Keflex*) 500 Mg Capsule, 500 MG PO TID for skin infection for 7 Day s, CAP Prov:ERMIAS CAICEDO DO 08/14/18 Lamotrigine* (Lamictal*) 100 Mg Tablet, 100 MG PO DAILY, #20 TAB Prov:CLAUDIA ALCANTARA PA-C 07/19/18 Sulfamethoxazole/Trimethoprim* (Bactrim Ds* Tablet) 1 Each Tablet, 1 TAB PO BID, #14 TAB Prov:ESTEFANÍA HERRERA MD 07/10/18 Cephalexin* (Keflex*) 500 Mg Capsule, 500 MG PO QID for 7 Days, CAP Prov:ESTEFANÍA HERRERA MD 07/10/18 Loratadine (Loratadine) 10 Mg Capsule, 10 MG PO DAILY, #30 CAP Prov:PRISCILA RIGGS 06/26/18 Hydroxyzine Hcl* (Hydroxyzine Hcl*) 50 Mg Tablet, 50 MG PO Q6H PRN for ITCHING, #30 TAB Prov:PRISCILA RIGGS 06/26/18 Lamotrigine* (Lamictal*) 100 Mg Tablet, 100 MG PO DAILY, #14 TAB Prov:PRISCILA RIGGS 06/26/18 Cephalexin* (Keflex*) 500 Mg Capsule, 500 MG PO QID for 5 Days, CAP Prov:LORY BARRIOS PA-C 06/15/18 Doxycycline Hyclate* (Doxycycline Hyclate*) 100 Mg Tablet.dr, 100 MG PO BID for 7 Days, TAB Prov:WALTER COBIAN PA-C 06/03/18 Lamotrigine* (Lamictal*) 100 Mg Tablet, 100 MG PO DAILY for 20 Days, TAB Prov:WALTER COBIAN PA-C 05/20/18 Ondansetron Hcl* (Zofran*) 4 Mg Tablet, 4 MG PO Q6H for NAUSEA AND/OR VOMITING, #30 TAB Prov:WALTER COBIAN PA-C 05/20/18 Loratadine* (Claritin*) 10 Mg Tablet, 10 MG PO DAILY for 20 Days, TAB Prov:WALTER COBIAN PA-C 05/20/18 Fluconazole* (Diflucan*) 150 Mg Tablet, 150 MG PO ONCE, #1 TAB Prov:ONDINA HANSEN PA-C 05/14/18 Mupirocin* (Bactroban*) 2% -22 Gram Oint...g., 1 APPLIC TOP BID for 7 Days, EA Prov:ONDINA HANSEN PA-C 05/14/18 Permethrin* (Elimite*) 5% Cr, 1 APPLIC TOP ONCE PRN for use as directed, #1 TUB Prov:ONDINA HANSEN PA-C 05/14/18 Lamotrigine* (Lamictal* XR) 50 Mg Tab.er.24, 50 MG PO DAILY for 15 Days, TAB Prov:WALTER COBIAN PA-C 04/16/18 Bacitracin* (Bacitracin Oint (UD)*) 1 Applic Oint, 1 APPLIC TOP ONCE, #10 PKT APPLY TO Prov:WALTER COBIAN PA-C 04/16/18 Miconazole Nitrate (Miconazole 7) 100 Mg Supp.vag, 100 MG VG QHS, #7 SUPP.VAG Prov:DERICK RIGGINS PA-C 03/19/18 Fluconazole* (Diflucan*) 150 Mg Tablet, 150 MG PO ONCE, #1 TAB Prov:DERICK RIGGINS PA-C 03/19/18 Cephalexin* (Keflex*) 500 Mg Capsule, 500 MG PO QID for 7 Days, CAP Prov:DERICK RIGGINS PA-C 03/19/18 Sulfamethoxazole/Trimethoprim* (Bactrim Ds* Tablet) 1 Each Tablet, 1 TAB PO BID, #14 TAB Prov:DERICK RIGGINS PA-C 03/19/18 Lamotrigine* (Lamictal* ODT) 25 Mg Tab.rapdis, 50 MG PO BID, #40 TAB Prov:DERICK RIGGINS PA-C 03/19/18 Lamotrigine* (Lamictal* XR) 50 Mg Tab.er.24, 50 MG PO DAILY, #15 TAB Prov:ESTEFANÍA HERRERA MD 01/09/18 Fluconazole* (Fluconazole*) 150 Mg Tablet, 150 MG PO DAILY, #1 TAB Prov:DERICK RIGGINS PA-C 11/09/17 Lamotrigine* (Lamictal* XR) 50 Mg Tab.er.24, 50 MG PO DAILY, #60 TAB Prov:DERICK RIGGINS PA-C 11/09/17 Miconazole Nitrate (Miconazole-7) 45 Gm Cr, 1 APPLIC VG QHS, #1 KIT Prov:DERICK RIGGINS PA-C 11/09/17 Lamotrigine* (Lamictal*) 100 Mg Tablet, 50 MG PO BID, #60 TAB Prov:IAIN LANDERS PA-C 01/08/17 Sulfamethoxazole/Trimethoprim* (Bactrim Ds* Tablet) 1 Each Tablet, 1 TAB PO BID, #20 TAB Prov:IAIN LANDERS PA-C 01/08/17 Doxycycline Hyclate* (Doxycycline Hyclate*) 100 Mg Tablet.dr, 100 MG PO BID for 10 Days, TAB Prov:JORDAN GARCIA MD 05/03/16 Citalopram Hydrobromide* (Citalopram Hydrobromide*) 40 Mg Tablet, 40 MG PO DAILY, #30 TAB Prov:JORDAN GARCIA MD 05/03/16 Citalopram Hydrobromide* (Celexa*) 20 Mg Tablet, 20 MG PO DAILY, #30 TAB Prov:JORDAN GARCIA MD 05/03/16 Lamotrigine* (Lamictal*) 200 Mg Tablet, 200 MG PO BID for 30 Days, TAB Prov:OJRDAN GARCIA MD 05/03/16 Hydroxyzine Hcl* (Hydroxyzine Hcl*) 25 Mg Tablet, 25 MG PO Q8H PRN for ITCHING, #30 TAB Prov:ESTEFANÍA HERRERA MD 12/23/15 Permethrin* (Elimite*) 5% Cr, 1 APPLIC TOP ONCE, #1 TUB Prov:ESTEFANÍA HERRERA MD 12/23/15 Reported Medications Alprazolam* (Xanax*) 0.25 Mg Tablet, 0.25 MG PO BID, TAB 12/23/15 Lamotrigine* (Lamictal*) 100 Mg Tablet, 200 MG PO BID, TAB 11/15/14 Citalopram Hydrobromide* (Citalopram Hydrobromide*) 40 Mg Tablet, 40 MG PO DAILY, TAB 11/15/14 Citalopram Hydrobromide* (Celexa*) 20 Mg Tablet, 20 MG PO DAILY, TAB 11/15/14 Levothyroxine Sodium* (Synthroid*) 25 Mcg Tablet, 25 MCG PO DAILY, TAB 06/03/14 Lamotrigine* (Lamictal*) 150 Mg Tablet, 375 MG PO DAILY, TAB 06/03/14 Allergies Allergies: Coded Allergies: clindamycin (Verified Allergy, Unknown, 01/09/18) PMhx/Soc History of Surgery: Yes (c section X 2) Anesthesia Reaction: No Hx Neurological Disorder: No Hx Respiratory Disorders: No Hx Cardiac Disorders: No Hx Psychiatric Problems: Yes (Psychiatric disorders/MOOD DISORDER) Hx Miscellaneous Medical Probl: No Hx Alcohol Use: No Hx Substance Use: Yes (History of heroin abuse, currently enrolled in [employer].LAST WAS 3 MOS AGO) Hx Tobacco Use: No Smoking Status: Current every day smoker FmHx Family History: No diabetes, No coronary disease, No other Physical Exam Vitals Vital Signs Date Temp Pulse Resp B/P (MAP) Pulse Ox O2 O2 Flow FiO2 Time Delivery Rate 10/04/18 98.6 70 18 130/58 99 07:55 (82) Physical Exam GENERAL: The patient is well-appearing, well-nourished, in no acute distress HEENT: Atraumatic. Conjunctivae are pink. Pupils equal, round, and reactive to light. There is no scleral icterus. Tympanic membranes clear bilaterally. Oropharynx clear. CHEST: Clear to auscultation bilaterally. There are no rales, wheezes or rhonchi. HEART: Regular rate and rhythm. No murmurs, clicks, rubs or gallops. ABDOMEN:Soft, nontender and nondistended. Good bowel sounds. No rebound or guarding. No gross peritonitis. No gross organomegaly or masses. Results 24 hrs Current Medications Medications Dose Sig/Russell Start Time Status Last (Trade) Ordered Route PRN Stop Time Admin Dose Reason Admin Lamotrigine 100 mg ONCE ONCE 10/04/18 DC 10/04/18 (Lamictal) PO 08:30 10/04/18 08:24 08:31 Procedures/MDM ER course: Lamictal given ED. MDM: 33-year-old female presenting with request for refill of medication of Lamictal. Patient has a planned appointment in 2 weeks with her primary doctor. Patient will be discharged with her medications. Patient denies any suicidal homicidal ideations.Patient is told symptoms change or worsen to return immediately to the ER. All questions answered at discharge Departure Diagnosis: Primary Impression: Encounter for medication refill Patient Instructions: Taking Medicine Safely Referrals: KEITH METZ (PCP) Additional Instructions: FOLLOW UP WITH YOUR PRIMARY CARE PHYSICIAN TOMORROW.Return to this facility if you are not improving as expected. DERICK RIGGINS PA-C Oct 04, 2018 08:34
== END 2018-10-04 08:27 | disposition home or self-care (01) ==
LOC: FTE 07:54
DX: Z76.0 Encounter for issue of repeat prescription (principal); E03.9 Hypothyroidism, unspecified; F17.210 Nicotine dependence, cigarettes, uncomplicated
CPT/HCPCS: Z7502; Z7610; 99283

== ENCOUNTER 2018-10-29 12:08 | Emergency (ER) | payer OTHER ==
[~2018-10-29] VITALS: Ht 152.4 cm; Wt 54.5 kg
[2018-10-29 12:17] VITALS: BP 103/66; PULSE 80; RESP 18; Ht 152.4 cm; Wt 54.5 kg
--- NOTE | 2018-10-29 14:26 | ERD ---
ER Documentation Chief Complaint Chief Complaint pt needs script lamictal and synthroid, HPI 33-year-old female is here requesting medication refill for Lamictal and Synthroid. She last took medications 3 days ago. She has no other complaints. She would like 1 dose of Lamictal here if possible. No fever. No nausea or vomiting. ROS All systems reviewed and are negative except as per history of present illness. Medications Home Meds Active Scripts Lamotrigine* (Lamictal*) 100 Mg Tablet, 100 MG PO DAILY, #30 TAB Prov:DERICK RIGGINS PA-C 10/04/18 Diphenhydramine Hcl* (Benadryl*) 25 Mg Cap, 25 MG PO Q6 PRN for ITCHING/RASH, #30 TAB Prov:PRISCILA RIGGS 08/18/18 Lamotrigine* (Lamictal*) 100 Mg Tablet, 100 MG PO DAILY for bipolar, #30 TAB Prov:ERMIAS CAICEDO DO 08/14/18 Sulfamethoxazole/Trimethoprim* (Bactrim Ds* Tablet) 1 Each Tablet, 1 TAB PO BID for 7 Days, #14 TAB Prov:ERMIAS CAICEDO DO 08/14/18 Cephalexin* (Keflex*) 500 Mg Capsule, 500 MG PO TID for skin infection for 7 Days, CAP Prov:ERMIAS CAICEDO DO 08/14/18 Lamotrigine* (Lamictal*) 100 Mg Tablet, 100 MG PO DAILY, #20 TAB Prov:CLAUDIA ALCANTARA PA-C 07/19/18 Sulfamethoxazole/Trimethoprim* (Bactrim Ds* Tablet) 1 Each Tablet, 1 TAB PO BID, #14 TAB Prov:ESTEFANÍA HERRERA MD 07/10/18 Cephalexin* (Keflex*) 500 Mg Capsule, 500 MG PO QID for 7 Days, CAP Prov:ESTEFANÍA HERRERA MD 07/10/18 Loratadine (Loratadine) 10 Mg Capsule, 10 MG PO DAILY, #30 CAP Prov:PRISCILA RIGGS 06/26/18 Hydroxyzine Hcl* (Hydroxyzine Hcl*) 50 Mg Tablet, 50 MG PO Q6H PRN for ITCHING, #30 TAB Prov:PRISCILA RIGGS 06/26/18 Lamotrigine* (Lamictal*) 100 Mg Tablet, 100 MG PO DAILY, #14 TAB Prov:PRISCILA RIGGS 06/26/18 Cephalexin* (Keflex*) 500 Mg Capsule, 500 MG PO QID for 5 Days, CAP Prov:LORY BARRIOS PA-C 06/15/18 Doxycycline Hyclate* (Doxycycline Hyclate*) 100 Mg Tablet.dr, 100 MG PO BID for 7 Days, TAB Prov:WALTER COBIAN PA-C 06/03/18 Lamotrigine* (Lamictal*) 100 Mg Tablet, 100 MG PO DAILY for 20 Days, TAB Prov:WALTER COBIAN PA-C 05/20/18 Ondansetron Hcl* (Zofran*) 4 Mg Tablet, 4 MG PO Q6H for NAUSEA AND/OR VOMITING, #30 TAB Prov:WALTER COBIAN PA-C 05/20/18 Loratadine* (Claritin*) 10 Mg Tablet, 10 MG PO DAILY for 20 Days, TAB Prov:WALTER COBIAN PA-C 05/20/18 Fluconazole* (Diflucan*) 150 Mg Tablet, 150 MG PO ONCE, #1 TAB Prov:ONDINA HANSEN PA-C 05/14/18 Mupirocin* (Bactroban*) 2% -22 Gram Oint...g., 1 APPLIC TOP BID for 7 Days, EA Prov:ONDINA HANSEN PA-C 05/14/18 Permethrin* (Elimite*) 5% Cr, 1 APPLIC TOP ONCE PRN for use as directed, #1 TUB Prov:ONDINA HANSEN PA-C 05/14/18 Lamotrigine* (Lamictal* XR) 50 Mg Tab.er.24, 50 MG PO DAILY for 15 Days, TAB Prov:WALTER COBIAN PA-C 04/16/18 Bacitracin* (Bacitracin Oint (UD)*) 1 Applic Oint, 1 APPLIC TOP ONCE, #10 PKT APPLY TO Prov:WALTER COBIAN PA-C 04/16/18 Miconazole Nitrate (Miconazole 7) 100 Mg Supp.vag, 100 MG VG QHS, #7 SUPP.VAG Prov:DERICK RIGGINS PA-C 03/19/18 Fluconazole* (Diflucan*) 150 Mg Tablet, 150 MG PO ONCE, #1 TAB Prov:DERICK RIGGINS PA-C 03/19/18 Cephalexin* (Keflex*) 500 Mg Capsule, 500 MG PO QID for 7 Days, CAP Prov:DERICK RIGGINS PA-C 03/19/18 Sulfamethoxazole/Trimethoprim* (Bactrim Ds* Tablet) 1 Each Tablet, 1 TAB PO BID, #14 TAB Prov:DERICK RIGGINS PA-C 03/19/18 Lamotrigine* (Lamictal* ODT) 25 Mg Tab.rapdis, 50 MG PO BID, #40 TAB Prov:DERICK RIGGINS PA-C 03/19/18 Lamotrigine* (Lamictal* XR) 50 Mg Tab.er.24, 50 MG PO DAILY, #15 TAB Prov:ESTEFANÍA HERRERA MD 01/09/18 Fluconazole* (Fluconazole*) 150 Mg Tablet, 150 MG PO DAILY, #1 TAB Prov:DERICK RIGGINS PA-C 11/09/17 Lamotrigine* (Lamictal* XR) 50 Mg Tab.er.24, 50 MG PO DAILY, #60 TAB Prov:DERICK RIGGINS PA-C 11/09/17 Miconazole Nitrate (Miconazole-7) 45 Gm Cr, 1 APPLIC VG QHS, #1 KIT Prov:DERICK RIGGINS PA-C 11/09/17 Lamotrigine* (Lamictal*) 100 Mg Tablet, 50 MG PO BID, #60 TAB Prov:IAIN LANDERS PA-C 01/08/17 Sulfamethoxazole/Trimethoprim* (Bactrim Ds* Tablet) 1 Each Tablet, 1 TAB PO BID, #20 TAB Prov:IAIN LANDERS PA-C 01/08/17 Doxycycline Hyclate* (Doxycycline Hyclate*) 100 Mg Tablet.dr, 100 MG PO BID for 10 Days, TAB Prov:JORDAN GARCIA MD 05/03/16 Citalopram Hydrobromide* (Citalopram Hydrobromide*) 40 Mg Tablet, 40 MG PO DAILY, #30 TAB Prov:JORDAN GARCIA MD 05/03/16 Citalopram Hydrobromide* (Celexa*) 20 Mg Tablet, 20 MG PO DAILY, #30 TAB Prov:JORDAN GARCIA MD 05/03/16 Lamotrigine* (Lamictal*) 200 Mg Tablet, 200 MG PO BID for 30 Days, TAB Prov:JORDAN GARCIA MD 05/03/16 Hydroxyzine Hcl* (Hydroxyzine Hcl*) 25 Mg Tablet, 25 MG PO Q8H PRN for ITCHING, #30 TAB Prov:ESTEFANÍA HERRERA MD 12/23/15 Permethrin* (Elimite*) 5% Cr, 1 APPLIC TOP ONCE, #1 TUB Prov:ESTEFANÍA HERRERA MD 12/23/15 Reported Medications Alprazolam* (Xanax*) 0.25 Mg Tablet, 0.25 MG PO BID, TAB 12/23/15 Lamotrigine* (Lamictal*) 100 Mg Tablet, 200 MG PO BID, TAB 11/15/14 Citalopram Hydrobromide* (Citalopram Hydrobromide*) 40 Mg Tablet, 40 MG PO DAILY, TAB 11/15/14 Citalopram Hydrobromide* (Celexa*) 20 Mg Tablet, 20 MG PO DAILY, TAB 11/15/14 Levothyroxine Sodium* (Synthroid*) 25 Mcg Tablet, 25 MCG PO DAILY, TAB 06/03/14 Lamotrigine* (Lamictal*) 150 Mg Tablet, 375 MG PO DAILY, TAB 06/03/14 Allergies Allergies: Coded Allergies: clindamycin (Verified Allergy, Unknown, 01/09/18) PMhx/Soc History of Surgery: Yes (c section X 2) Anesthesia Reaction: No Hx Neurological Disorder: No Hx Respiratory Disorders: No Hx Cardiac Disorders: No Hx Psychiatric Problems: Yes (Psychiatric disorders/MOOD DISORDER) Hx Miscellaneous Medical Probl: No Hx Alcohol Use: No Hx Substance Use: Yes (History of heroin abuse, currently enrolled in .LAST WAS 3 MOS AGO) Hx Tobacco Use: No FmHx Family History: No diabetes Physical Exam Vitals Vital Signs Date Temp Pulse Resp B/P (MAP) Pulse Ox O2 O2 Flow FiO2 Time Delivery Rate 10/29/18 98.3 80 18 103/66 98 12:17 (78) Physical Exam Const: No acute distress Head: Atraumatic Eyes: Normal Conjunctiva ENT: Normal External Ears, Nose and Mouth. Neck: Full range of motion. No meningismus. Resp: Clear to auscultation bilaterally Cardio: Regular rate and rhythm, no murmurs Results 24 hrs Current Medications Medications Dose Sig/Russell Start Time Status Last (Trade) Ordered Route PRN Stop Time Admin Dose Reason Admin Lamotrigine 100 mg ONCE ONCE 10/29/18 (Lamictal) PO 14:30 10/29/18 14:31 Procedures/MDM Patient given 1 Lamictal here. Prescription refill of medications given. Patient counseled regarding my diagnostic impression and care plan. Prior to discharge all questions answered. Pt agrees with treatment plan and understands strict return precautions. Pt is instructed to follow up with primary care provider within 24-48 hours. Precautionary instructions provided including instructions to return to the ER if not improving or for any worsening or changing symptoms or concerns. Departure Diagnosis: Primary Impression: Medication refill Condition: Stable JOSE BAZZI PA-C Oct 29, 2018 14:26
[2018-10-29] MEDS ORDERED: LEVO25TA PO (14:27)
[2018-10-29] MEDS ORDERED: LAMO100T83 PO (14:27)
[2018-10-29] MEDS ORDERED: LAMOTRIGINE 100 MG TAB PO ONE (14:30)
== END 2018-10-29 14:55 | disposition home or self-care (01) ==
LOC: FTE 12:08
DX: Z76.0 Encounter for issue of repeat prescription (principal)
CPT/HCPCS: Z7502; Z7610; 99283

== ENCOUNTER 2018-11-14 15:28 | Inpatient (IN) | payer OTHER ==
[~2018-11-14] VITALS: Ht 152.4 cm; Wt 54.5 kg
--- NOTE | 2018-11-14 18:44 | ERD ---
ER Documentation Chief Complaint Chief Complaint SOB HPI The patient is a 33-year-old female, presenting to the ER because of acute d yspnea, cough for the last week, worse today. She denies neck pain, chest pain, dyspnea, complains of low back pain and dysuria, denies diarrhea. She smokes, denies drinking or using illicit drug Past medical history: Hypothyroidism, depression Past surgical history: 2 ROS All systems reviewed and are negative except as per history of present illness. Medications Home Meds Active Scripts Levothyroxine Sodium* (Synthroid*) 25 Mcg Tablet, 25 MCG PO BEFORE BREAKFAST, #30 TAB Prov:JOSE BAZZI PA-C 10/29/18 Lamotrigine* (Lamictal*) 100 Mg Tablet, 100 MG PO DAILY, #30 TAB Prov:JOSE BAZZI PA-C 10/29/18 Reported Medications Ibuprofen* (Ibuprofen*) 200 Mg Capsule, 200 MG PO QID PRN for PAIN, CAP 11/14/18 Multivitamins* (Theragran*) 1 Tab Tab, 1 TAB PO DAILY, TAB 11/14/18 Discontinued Reported Medications Alprazolam* (Xanax*) 0.25 Mg Tablet, 0.25 MG PO BID, TAB 12/23/15 Lamotrigine* (Lamictal*) 100 Mg Tablet, 200 MG PO BID, TAB 11/15/14 Citalopram Hydrobromide* (Citalopram Hydrobromide*) 40 Mg Tablet, 40 MG PO DAILY, TAB 11/15/14 Citalopram Hydrobromide* (Celexa*) 20 Mg Tablet, 20 MG PO DAILY, TAB 11/15/14 Levothyroxine Sodium* (Synthroid*) 25 Mcg Tablet, 25 MCG PO DAILY, TAB 06/03/14 Lamotrigine* (Lamictal*) 150 Mg Tablet, 375 MG PO DAILY, TAB 06/03/14 Discontinued Scripts Lamotrigine* (Lamictal*) 100 Mg Tablet, 100 MG PO DAILY, #30 TAB Prov:DERICK RIGGINS PA-C 10/04/18 Diphenhydramine Hcl* (Benadryl*) 25 Mg Cap, 25 MG PO Q6 PRN for ITCHING/RASH, #30 TAB Prov:PRISCILA RIGGS 08/18/18 Lamotrigine* (Lamictal*) 100 Mg Tablet, 100 MG PO DAILY for bipolar, #30 TAB Prov:ERMIAS CAICEDO DO 08/14/18 Sulfamethoxazole/Trimethoprim* (Bactrim Ds* Tablet) 1 Each Tablet, 1 TAB PO BID for 7 Days, #14 TAB Prov:ERMIAS CAICEDO DO 08/14/18 Cephalexin* (Keflex*) 500 Mg Capsule, 500 MG PO TID for skin infection for 7 Da ys, CAP Prov:ERMIAS CAICEDO DO 08/14/18 Lamotrigine* (Lamictal*) 100 Mg Tablet, 100 MG PO DAILY, #20 TAB Prov:CLAUDIA ALCANTARA PA-C 07/19/18 Sulfamethoxazole/Trimethoprim* (Bactrim Ds* Tablet) 1 Each Tablet, 1 TAB PO BID, #14 TAB Prov:ESTEFANÍA HERRERA MD 07/10/18 Cephalexin* (Keflex*) 500 Mg Capsule, 500 MG PO QID for 7 Days, CAP Prov:ESTEFANÍA HERRERA MD 07/10/18 Loratadine (Loratadine) 10 Mg Capsule, 10 MG PO DAILY, #30 CAP Prov:PASILAPRISCILA BURT 06/26/18 Hydroxyzine Hcl* (Hydroxyzine Hcl*) 50 Mg Tablet, 50 MG PO Q6H PRN for ITCHING, #30 TAB Prov:PRISCILA RIGGS 06/26/18 Lamotrigine* (Lamictal*) 100 Mg Tablet, 100 MG PO DAILY, #14 TAB Prov:PRISCILA RIGGS 06/26/18 Cephalexin* (Keflex*) 500 Mg Capsule, 500 MG PO QID for 5 Days, CAP Prov:LORY BARRIOS PA-C 06/15/18 Doxycycline Hyclate* (Doxycycline Hyclate*) 100 Mg Tablet.dr, 100 MG PO BID for 7 Days, TAB Prov:WALTER COBIAN PA-C 06/03/18 Lamotrigine* (Lamictal*) 100 Mg Tablet, 100 MG PO DAILY for 20 Days, TAB Prov:WALTER COBIAN PA-C 05/20/18 Ondansetron Hcl* (Zofran*) 4 Mg Tablet, 4 MG PO Q6H for NAUSEA AND/OR VOMITING, #30 TAB Prov:GONZALOWALTER MCKEONC 05/20/18 Loratadine* (Claritin*) 10 Mg Tablet, 10 MG PO DAILY for 20 Days, TAB Prov:ARANZAWALTER WINSTON-C 05/20/18 Fluconazole* (Diflucan*) 150 Mg Tablet, 150 MG PO ONCE, #1 TAB Prov:TYRONEONDINA MCKEONC 05/14/18 Mupirocin* (Bactroban*) 2% -22 Gram Oint...g., 1 APPLIC TOP BID for 7 Days, EA Prov:TYRONEONDINA MCKEONC 05/14/18 Permethrin* (Elimite*) 5% Cr, 1 APPLIC TOP ONCE PRN for use as directed, #1 TUB Prov:TYRONEONDINA MCKEONC 05/14/18 Lamotrigine* (Lamictal* XR) 50 Mg Tab.er.24, 50 MG PO DAILY for 15 Days, TAB Prov:GONZALOWALTER MCKEONC 04/16/18 Bacitracin* (Bacitracin Oint (UD)*) 1 Applic Oint, 1 APPLIC TOP ONCE, #10 PKT APPLY TO Prov:GONZALOWALTER WINSTON-C 04/16/18 Miconazole Nitrate (Miconazole 7) 100 Mg Supp.vag, 100 MG VG QHS, #7 SUPP.VAG Prov:DERICK RIGGINS PA-C 03/19/18 Fluconazole* (Diflucan*) 150 Mg Tablet, 150 MG PO ONCE, #1 TAB Prov:DERICK RIGGINS PA-C 03/19/18 Cephalexin* (Keflex*) 500 Mg Capsule, 500 MG PO QID for 7 Days, CAP Prov:DERICK RIGGINS PA-C 03/19/18 Sulfamethoxazole/Trimethoprim* (Bactrim Ds* Tablet) 1 Each Tablet, 1 TAB PO BID, #14 TAB Prov:DERICK RIGGINS PA-C 03/19/18 Lamotrigine* (Lamictal* ODT) 25 Mg Tab.rapdis, 50 MG PO BID, #40 TAB Prov:DERICK RIGGINS PA-C 03/19/18 Lamotrigine* (Lamictal* XR) 50 Mg Tab.er.24, 50 MG PO DAILY, #15 TAB Prov:ESTEFANÍA HERRERA MD 01/09/18 Fluconazole* (Fluconazole*) 150 Mg Tablet, 150 MG PO DAILY, #1 TAB Prov:DERICK RIGGINS PA-C 11/09/17 Lamotrigine* (Lamictal* XR) 50 Mg Tab.er.24, 50 MG PO DAILY, #60 TAB Prov:DERICK RIGGINS PA-C 11/09/17 Miconazole Nitrate (Miconazole-7) 45 Gm Cr, 1 APPLIC VG QHS, #1 KIT Prov:DERICK RIGGINS PA-C 11/09/17 Lamotrigine* (Lamictal*) 100 Mg Tablet, 50 MG PO BID, #60 TAB Prov:IAIN LANDERS PA-C 01/08/17 Sulfamethoxazole/Trimethoprim* (Bactrim Ds* Tablet) 1 Each Tablet, 1 TAB PO BID, #20 TAB Prov:IAIN LANDERS PA-C 01/08/17 Doxycycline Hyclate* (Doxycycline Hyclate*) 100 Mg Tablet.dr, 100 MG PO BID for 10 Days, TAB Prov:JORDAN GARCIA MD 05/03/16 Citalopram Hydrobromide* (Citalopram Hydrobromide*) 40 Mg Tablet, 40 MG PO DAILY, #30 TAB Prov:JORDAN GARCIA MD 05/03/16 Citalopram Hydrobromide* (Celexa*) 20 Mg Tablet, 20 MG PO DAILY, #30 TAB Prov:JORDAN GARCIA MD 05/03/16 Lamotrigine* (Lamictal*) 200 Mg Tablet, 200 MG PO BID for 30 Days, TAB Prov:JORDAN GARCIA MD 05/03/16 Hydroxyzine Hcl* (Hydroxyzine Hcl*) 25 Mg Tablet, 25 MG PO Q8H PRN for ITCHING, #30 TAB Prov:ESTEFANÍA HERRERA MD 12/23/15 Permethrin* (Elimite*) 5% Cr, 1 APPLIC TOP ONCE, #1 TUB Prov:ESTEFANÍA HERRERA MD 12/23/15 Allergies Allergies: Coded Allergies: clindamycin (Unverified Allergy, Unknown, 11/14/18) PMhx/Soc History of Surgery: Yes (c section X 2) Anesthesia Reaction: No Hx Neurological Disorder: No Hx Respiratory Disorders: No Hx Cardiac Disorders: No Hx Psychiatric Problems: Yes (Psychiatric disorders/MOOD DISORDER) Hx Miscellaneous Medical Probl: No Hx Alcohol Use: No Hx Substance Use: Yes (History of heroin abuse, currently enrolled in .LAST WAS 3 MOS AGO) Hx Tobacco Use: No Physical Exam Vitals Vital Signs Date Temp Pulse Resp B/P (MAP) Pulse Ox O2 O2 Flow FiO2 Time Delivery Rate 11/14/18 99.5 125 26 104/67 95 Room Air 21:05 (79) 11/14/18 107 20 96 21 19:32 11/14/18 100.1 115 24 116/66 93 15:43 (83) Physical Exam Const: No acute distress. Head: Atraumatic. Eyes: Normal Conjunctiva. ENT: Normal External Ears, Nose and Mouth. Neck: Full range of motion. No meningismus. Resp: tachypneic, bilateral expiratory wheezes Cardio: Regular tachycardic. Abd: Soft, non distended, normal bowel sounds, non tender. Skin: No petechiae or rashes. Back: No midline or flank tenderness. Ext: No cyanosis, or edema. Neur: Awake and alert. No focal deficit Psych: Normal Mood and Affect. Result Diagram: 11/14/18190311/14/18 190 Results 24 hrs Laboratory Tests Test 11/14/18 19:04 White Blood Count 17.2 10^3/ul Red Blood Count 4.22 10^6/ul Hemoglobin 12.8 g/dl Hematocrit 38.0 % Mean Corpuscular Volume 90.0 fl Mean Corpuscular Hemoglobin 30.3 pg Mean Corpuscular Hemoglobin Concent 33.7 g/dl Red Cell Distribution Width 12.5 % Platelet Count 212 10^3/UL Mean Platelet Volume 11.0 fl Immature Granulocytes % 0.500 % Neutrophils % 90.8 % Lymphocytes % 5.5 % Monocytes % 2.9 % Eosinophils % 0.1 % Basophils % 0.2 % Nucleated Red Blood Cells % 0.0 /100WBC Immature Granulocytes # 0.090 10^3/ul Neutrophils # 15.6 10^3/ul Lymphocytes # 0.9 10^3/ul Monocytes # 0.5 10^3/ul Eosinophils # 0.0 10^3/ul Basophils # 0.0 10^3/ul Nucleated Red Blood Cells # 0.0 10^3/ul Prothrombin Time 13.4 Sec Prothrombin Time Ratio 1.0 INR International Normalized Ratio 1.01 Activated Partial Thromboplast Time 29.7 Sec Sodium Level 137 mmol/L Potassium Level 3.8 mmol/L Chloride Level 101 mmol/L Carbon Dioxide Level 27 mmol/L Anion Gap 9 Blood Urea Nitrogen 9 mg/dl Creatinine 0.66 mg/dl Est Glomerular Filtrat Rate mL/min > 60 mL/min Glucose Level 125 mg/dl POC Venous Lactate 1.5 mmol/L Calcium Level 9.5 mg/dl Total Bilirubin 0.4 mg/dl Direct Bilirubin 0.00 mg/dl Indirect Bilirubin 0.4 mg/dl Aspartate Amino Transf (AST/SGOT) 15 IU/L Alanine Aminotransferase (ALT/SGPT) < 6 IU/L Alkaline Phosphatase 73 IU/L Troponin I < 0.012 ng/ml Total Protein 8.2 g/dl Albumin 4.4 g/dl Globulin 3.80 g/dl Albumin/Globulin Ratio 1.15 Current Medications Medications Dose Sig/Russell Start Time Status Last (Trade) Ordered Route PRN Stop Time Admin Dose Reason Admin Sodium 1,640 ml BOLUS OVER 2 11/14/18 DC 11/14/18 Chloride HOURS STAT 18:49 19:19 (NS) IV* 11/14/18 18:51 5 mg ONCE STAT 11/14/18 DC 11/14/18 Levalbuterol INH 18:49 19:32 (Xopenex 11/14/18 18:51 Neb) Ipratropium 1 mg ONCE STAT 11/14/18 DC 11/14/18 [place] INH 18:49 19:32 (Atrovent 11/14/18 18:51 0.02% (Neb)) 650 mg ONCE ONCE 11/14/18 DC 11/14/18 Acetaminophen PO 19:00 19:18 (Tylenol 11/14/18 19:01 Tab) Insulin 18 unit ONCE ONCE 11/14/18 Cancel Human SC 20:00 Lispro 11/14/18 20:01 (Humalog) Diagnostic 1 ea 2 HRS AFTER 11/14/18 Cancel Test (Pha) HUMALOG ONCE 20:00 (Accu-Chek) XX 11/14/18 20:01 Procedures/MDM [place] [id number] Radiology Main Line: [phone] DIAGNOSTIC IMAGING REPORT Patient: SARA BRAR : 1985 Age: 33 Sex: F MR #: [id number] DOS: 11/14/18 1849 Ordering MD: REMIAS VOGT MD Location: E/R Room/Bed: PROCEDURE: Chest. CLINICAL INDICATION: Chest pain. TECHNIQUE: Single frontal view of the chest was obtained. COMPARISON: None. FINDINGS: The cardiac silhouette is within normal limits. The aortic arch is unre markable. There is no focal consolidation, vascular congestion or pleural effusion. There is no pneumothorax. IMPRESSION: No evidence for active cardiopulmonary disease. .Jesse Goodman MD MD Date Time Electronically viewed and signed by .Jesse Goodman MD, MD on 11/14/2018 19:49 .T/ CC: ERMIAS VOGT MD [id number] EKG: Read by emergency physician Rate/Rhythm: Sinus Tachycardia 105 beats/min QRS, ST, T-waves: No ST elevation, no T inversion Impression: Abnormal EKG MEDICAL MAKING DECISION: The patient is a 33-year-old female, presenting with acute SIRS, treated with normosaline 30 mm/kg IV, Xopenex 5 mg and Atrovent 1 mg nebulizer over one hour for wheezing, Tylenol 650 mg p.o. for fever. On repeat evaluation, she still does not feel better, complains of generalized weakness but her breathing is better. She was treated empirically with Rocephin IV and Zithromax IV for suspected pneumonia The differential diagnoses considered include but are not limited to asthma, COPD, pneumonia, pulmonary embolus, pleural effusion, congestive heart failure. Departure Diagnosis: Primary Impression: SIRS (systemic inflammatory response syndrome) Comments I discussed the findings with the patient. I discussed the patient with Dr Griffiths at 9:40p , who was made aware of the lab, the treatment, the patient condition. The patient is admitted to Tel Disclaimer: Inadvertent spelling and grammatical errors are likely due to EHR/dictation software use and do not reflect on the overall quality of patient care. Also, please note that the electronic time recorded on this note does not necessarily reflect the actual time of the patient encounter. ERMIAS VOGT MD Nov 14, 2018 18:44
[2018-11-14] MEDS ORDERED: IPRATROPIUM (NEB) 0.5 MG/2.5 ML AMP INH STA (18:49)
[2018-11-14] MEDS ORDERED: LEVALBUTEROL (NEB) 1.25 MG/0.5 ML AMP INH STA (18:49)
[2018-11-14] MEDS ORDERED: SODIUM CHLORIDE 0.9% 1L BAG IV* STA (18:49)
[2018-11-14] MEDS ORDERED: ACETAMINOPHEN 325 MG TAB PO ONE ×2 (19:00→23:30)
[2018-11-14] MEDS ORDERED: ACCU-CHEK XX ONE (20:00)
[2018-11-14] MEDS ORDERED: INSULIN LISPRO 100 UNIT/ML VIAL SC ONE (20:00)
[2018-11-14] MEDS ORDERED: MULTI PO (20:15)
[2018-11-14] MEDS ORDERED: IBUP-1982 PO (20:15)
[2018-11-14] MEDS ORDERED: CEFTRIAXONE 1 GM/50 ML (PMX) 50 ML IVPB ONE (22:00)
[2018-11-14] MEDS ORDERED: SOD CHLORIDE 0.9% 1,000 ML IV ONE (22:00)
[2018-11-14] MEDS ORDERED: AZITHROMYCIN 500MG/NS (PMX) 250 ML IVPB ONE (22:00)
[2018-11-14] MEDS ORDERED: morphine 4 MG/ML VIAL IV STA (23:27)
[2018-11-14] MEDS ORDERED: ONDANSETRON 4 MG INJ IV STA (23:27)
[2018-11-15] VITALS: BP 103/60; PULSE 109; RESP 18
[2018-11-15 00:14] VITALS: Ht 152.4 cm; Wt 54.5 kg
[2018-11-15] MEDS ORDERED: ONDANSETRON 4 MG INJ IV PRN (01:00)
[2018-11-15] MEDS ORDERED: ACETAMINOPHEN 325 MG TAB PO PRN (01:00)
[2018-11-15] MEDS: SOD CHLORIDE 0.9% 1,000 ML IV SCH ×2 (01:04→09:00)
[2018-11-15] MEDS: PIPER-TAZO 3.375 GM IV (PMX) 100 ML IVPB SCH ×2 (01:10→05:12)
[2018-11-15 04:00] VITALS: BP 107/66; PULSE 90; PULSE 92; RESP 18
[2018-11-15] MEDS: morphine 2 MG INJ IV PRN ×2 (05:18→10:39)
[2018-11-15] MEDS ORDERED: PANTOPRAZOLE 40 MG INJ IV SCH (06:00)
[2018-11-15 07:14] VITALS: BP 103/64; PULSE 63; RESP 20
[2018-11-15 08:11] VITALS: PULSE 94
[2018-11-15 11:43] VITALS: BP 100/62; PULSE 78; RESP 20
[2018-11-15 12:08] VITALS: PULSE 86
--- NOTE | 2018-11-15 13:36 | QN ---
Documentation Comment pt seen and examined MADHAV LE MD Nov 15, 2018 13:36
[2018-11-15] MEDS ORDERED: ALBUTEROL/IPRATROPIUM (NEB) 3 ML AMP HHN SCH (14:00)
--- NOTE | 2018-11-15 17:21 | HP ---
DATE OF ADMISSION: 11/15/2018 REASON FOR ADMISSION: Fevers. HISTORY OF PRESENTING ILLNESS: This is a 33-year-old female with a past medical history of hypothyro idism, depression, fibromyalgia, presented to the emergency department because she was having cough f or 1 week and also shortness of breath. According to the patient, she had been doing fine except for 1 week, she was having shortness of breath and cough. She was having some chest tightness that made her worried and came to the emergency department. The patient denied any fevers and chills at home. The patient is a recovering heroin abuser and smoker. She also smokes 3 to 4 cigarettes per day. Denies any sick contacts. Denies any chest pain, abdominal pain, nausea, vomiting, diarrhea. On arr ival to ED, vital signs show temperature of 100.1, blood pressure of 116/66. White count was 17.2, h emoglobin 12.8, platelet count 212. Lactate was 2.6. BMP within normal limits. LFTs within normal limit. Troponin less than 0.012. UA was done that showed few bacteria. U-tox was positive for opia cary and amphetamines. The patient had a chest x-ray that was negative for any cardiopulmonary diseas e. Influenza A and B were negative and the patient was admitted for further management. PAST MEDICAL HISTORY: 1. Hypothyroidism. 2. Depression. 3. Fibromyalgia. ALLERGIES: CLINDAMYCIN. PAST SURGICAL HISTORY: x2. SOCIAL HISTORY: Smokes 3 to 4 cigarettes per day. Denies any alcohol use currently. The patient al so said is recovering from heroin abuse. REVIEW OF SYSTEMS: The patient complained of some shortness of breath and some cough for 1 week. De nies any chest pain, any abdominal pain, nausea, vomiting, diarrhea. Sometimes, she feels her whole body hurts. Denies any hematemesis, any melena, bright red blood per rectum. PHYSICAL EXAMINATION: VITAL SIGNS: Currently, blood pressure 100/62, afebrile, heart rate 78, respirations 20. GENERAL: The patient is awake, alert, oriented, does not appear to be in any acute distress. HEENT: Pupils are equal, round, reactive to light. NECK: Supple. No JVD. HEART: Regular rate and rhythm. LUNGS: Clear to auscultate bilaterally. ABDOMEN: Soft, nontender, nondistended, positive normoactive bowel sounds. EXTREMITIES: No clubbing, cyanosis or edema. No evidence of cellulitis. LABORATORY DATA: White count was 17.2, hemoglobin 12.8, platelet count 125. Potassium 3.8. ASSESSMENT AND PLAN: This is a 33-year-old female who presented with: 1. Cough and shortness of breath. Chest x-ray is negative for pneumonia. The patient has likely br onchitis with history of smoking. 2. History of smoking. 3. Heroin user. 4. Tox screen positive for amphetamines and opiates. 5. Lactic acidosis. 6. Systemic inflammatory response syndrome, unknown origin, likely secondary to bronchitis. 7. History of depression. 8. History of hypothyroidism. PLAN: At this period of time, the patient is admitted to telemetry floor. Blood cultures have been sent. We will follow serial lactate. The patient is on IV fluids. The patient will be continued on home medications. We will follow up on the blood cultures. The patient is on IV antibiotics. The patient will also get the nebs round the clock. Rest of the treatment will depend on the patient's h ospitalization course. Dictated By: MADHAV ZHOU/ZAYNAB Conf#: [id number] DID#: [id number] CC: LUC BRITT MD;*[facility]*
--- NOTE | 2018-11-15 20:14 | DS ---
DATE OF ADMISSION: 11/15/2018 DATE OF DISCHARGE: 11/15/2018 HISTORY OF PRESENTING ILLNESS: A 33-year-old female who was admitted complaining of shortness of kerry ath and cough for past 1 week. HOSPITAL COURSE: The patient was admitted with a diagnosis of SIRS bronchitis. A chest x-ray was ne gative. UA was negative. Blood cultures had been pending. The patient was started on IV antibiotic s; however, the patient said that she does not like it here. She is feeling awful, wants to leave. T he patient left AMA. Dictated By: MADHAV ZHOU/ZAYNAB Conf#: [id number] DID#: [id number] CC: LUC BRITT MD;*End*
[2018-11-16] MEDS ORDERED: LEVOTHYROXINE 25 MCG TAB PO SCH (07:00)
[2018-11-16] MEDS ORDERED: LAMOTRIGINE 100 MG TAB PO SCH (09:00)
[2018-11-16] MEDS ORDERED: MULTIVITAMINS THERAPEUTIC TAB PO SCH (09:00)
== END 2018-11-15 14:40 | disposition left against medical advice (07) | DRG 202 ==
LOC: E/R 15:28 → TEL 21:44 → OBSVTOIN 11-15 12:05
PROVIDERS: ADMIT Internal Medicine Nephrology; ATTEND Internal Medicine Nephrology
DX: J40 Bronchitis, not specified as acute or chronic (principal); R65.10 Systemic inflammatory response syndrome (SIRS) of non-infectious origin without acute organ dysfunction; E87.2 Acidosis; E03.9 Hypothyroidism, unspecified; F11.10 Opioid abuse, uncomplicated; M79.7 Fibromyalgia; F17.210 Nicotine dependence, cigarettes, uncomplicated; F32.9 Major depressive disorder, single episode, unspecified
CPT/HCPCS: 71045; 80048; 80053; 80307; 81001; 81003; 81025; 83605; 84484; 85025; 85610; 85730; 87086; 87400; 93005; 94644; G0378; C9113; J0456; J0696; J2270; J2405; J2543; J7030

== ENCOUNTER 2018-12-03 03:53 | Emergency (ER) | payer SELFPAY ==
[~2018-12-03] VITALS: Ht 154.9 cm; Wt 58.1 kg
[~2018-12-03 03:53] MED LIST changes: -ALPR0.25 PO; -BACITUD TOP; -BEN25 PO; -CEPH-443 PO; -CITA20TA11 PO; -CITA40TA6 PO; -DOXY100T20 PO; -ELIM TOP; -FLUC150T PO; -FLUC150T41 PO; -HYDR-843 PO; -HYDR50TA15 PO; +IBUP-1982 PO; -LAMO150T3 PO; -LAMO200T3 PO; -LAMO25TA PO; -LAMO50TA PO; -LORA-186 PO; -LORA10CA9 PO; -MICO100S4 VG; -MICO45CR73 VG; +MULTI PO; -MUPI22OI2 TOP; -ONDA4TAB8 PO; -SULF1TAB31 PO
[2018-12-03 04:07] VITALS: BP 117/71; PULSE 76; RESP 19; Ht 154.9 cm; Wt 58.1 kg
== END 2018-12-03 08:11 | disposition left against medical advice (07) ==
LOC: FTE 03:53
DX: Z53.21 Procedure and treatment not carried out due to patient leaving prior to being seen by health care provider (principal)

== ENCOUNTER 2018-12-05 00:23 | Emergency (ER) | payer OTHER ==
[~2018-12-05] VITALS: Ht 152.4 cm; Wt 58.5 kg
[2018-12-05 00:42] VITALS: Ht 152.4 cm; Wt 58.5 kg
--- NOTE | 2018-12-05 02:43 | ERD ---
ER Documentation Chief Complaint Chief Complaint chest congestion/cough/runny nose x 1 month HPI This is a 33 yo patient who presents to the emergency room with complaint of cough, runny nose, nasal congestion for several weeks. No fevers, no nausea vomiting diarrhea. Smokes 2 cigarettes a day. States she was admitted for bronchitis last month but left AMA. ROS All systems reviewed and are negative except as per history of present illness. Medications Home Meds Active Scripts Fluticasone Propionate (Flonase Allergy Relief) 9.9 Ml [place].susp, 1 SPRAY NASAL BID, #1 BOTTLE TO EACH NOSTRIL Prov:JASON GRANADOS NP 12/05/18 Loratadine* (Claritin*) 10 Mg Tablet, 10 MG PO DAILY for 30 Days, #30 TAB Prov:JASON GRANADOS NP 12/05/18 Levothyroxine Sodium* (Synthroid*) 25 Mcg Tablet, 25 MCG PO BEFORE BREAKFAST, #30 TAB Prov:JOSE BAZZI PA-C 10/29/18 Lamotrigine* (Lamictal*) 100 Mg Tablet, 100 MG PO DAILY, #30 TAB Prov:JSOE BAZZI PA-C 10/29/18 Reported Medications Ibuprofen* (Ibuprofen*) 200 Mg Capsule, 200 MG PO QID PRN for PAIN, CAP 11/14/18 Multivitamins* (Theragran*) 1 Tab Tab, 1 TAB PO DAILY, TAB 11/14/18 Allergies Allergies: Coded Allergies: clindamycin (Unverified Allergy, Unknown, 11/14/18) PMhx/Soc History of Surgery: Yes (2 ) Anesthesia Reaction: No Hx Neurological Disorder: No Hx Respiratory Disorders: No Hx Cardiac Disorders: No Hx Psychiatric Problems: Yes (depression, psych problems, past IV drug user) Hx Miscellaneous Medical Probl: Yes (hypothyroidism) Hx Alcohol Use: No Hx Substance Use: Yes (recovering heroin addict) Hx Tobacco Use: No Smoking Status: Never smoker FmHx Family History: No diabetes, No coronary disease, No other Physical Exam Vitals Vital Signs Date Temp Pulse Resp B/P (MAP) Pulse Ox O2 O2 Flow FiO2 Time Delivery Rate 12/05/18 98.6 90 18 121/77 99 00:42 (92) Physical Exam Const: No acute distress Head: Atraumatic, +maxillary tenderness BL Eyes: Normal Conjunctiva ENT: Normal External Ears, Nasal mucosa pale, pharynx pink without lesions or exudate. Neck: Full range of motion. No meningismus. Resp: Clear to auscultation bilaterally, no wheezing, no rhonchi, no rales Cardio: Regular rate and rhythm, no murmurs Abd: Soft, non tender, non distended. Normal bowel sounds Skin: No petechiae or rashes Back: No midline or flank tenderness Ext: No cyanosis, or edema Neur: Awake and alert Psych: Normal Mood and Affect Procedures/MDM This is a 33-year-old female patient who presents emergency room with complaint of congested nose, itchy eyes, dry cough. Departure Diagnosis: Primary Impression: Allergic rhinitis Condition: Stable Patient Instructions: Allergic Rhinitis Referrals: [facility] Additional Instructions: Thank you very much for allowing us to participate in your care. Your health and safety is our top priority at [facility]. Call your primary care doctor TOMORROW for an appointment during the next 2-4 days and bring all the information and medications prescribed. Have prescriptions filled and follow precisely the directions on the label. If the symptoms get worse and your provider is unavailable, return to the Emergency Department immediately. JASON GRANADOS NP December 05, 2018 02:43
[2018-12-05] MEDS ORDERED: LORA-186 PO (02:44)
[2018-12-05] MEDS ORDERED: FLUT9.9S NASAL (02:44)
== END 2018-12-05 03:30 | disposition left against medical advice (07) ==
LOC: FTE 00:23
DX: J30.9 Allergic rhinitis, unspecified (principal); E03.9 Hypothyroidism, unspecified
CPT/HCPCS: 99283

== ENCOUNTER 2018-12-09 16:50 | Emergency (ER) | payer OTHER ==
[~2018-12-09] VITALS: Ht 152.4 cm; Wt 60.3 kg
[~2018-12-09 16:50] MED LIST changes: +FLUT9.9S NASAL; +LORA-186 PO
[2018-12-09 16:54] VITALS: BP 112/73; PULSE 86; RESP 24; Ht 152.4 cm; Wt 60.3 kg
[2018-12-09] MEDS ORDERED: AZIT250T PO (17:13)
[2018-12-09] MEDS ORDERED: FLUT9.9S NASAL (17:13)
[2018-12-09] MEDS ORDERED: MED4DP PO (17:13)
--- NOTE | 2018-12-09 19:17 | ERD ---
ER Documentation Chief Complaint Chief Complaint nausea/vomittinx 2 days and flu symptoms x 6 weeks HPI 33-year-old female with No significant past medical history presenting to the emergency department complaining of nasal congestion and facial pain intermittently for the past 6 weeks. She also reports productive cough for the past 1 week. She reports tactile fevers over the past 3 days but has had none today. She tried no medication for relief of symptoms. Her symptoms are rated 7/10 in severity and constant. She denies any other symptoms currently. ROS All systems reviewed and are negative except as per history of present illness. Medications Home Meds Active Scripts Fluticasone Propionate (Flonase Allergy Relief) 9.9 Ml [place].susp, 1 SPRAY NASAL BID, #1 BOTTLE TO EACH NOSTRIL Prov:LORY BARRIOS PA-C 12/09/18 Azithromycin* (Zithromax*) 250 Mg Tablet, 250 MG PO .ZPACK DIRECTED, #6 TAB TAKE 500 MG (2 TABS) THE FIRST DAY THEN 250 MG (1 TAB) DAYS 2-5 Prov:LORY BARRIOS PA-C 12/09/18 Methylprednisolone* (Medrol* DOSE PACK) 4 Mg/Dose-Pack Tab.ds.pk, 4 MG PO . DIRECTED, #1 PACKET Prov:LORY BARRIOS PA-C 12/09/18 Fluticasone Propionate (Flonase Allergy Relief) 9.9 Ml [place].susp, 1 SPRAY NASAL BID, #1 BOTTLE TO EACH NOSTRIL Prov:JASON GRANADOS NP 12/05/18 Loratadine* (Claritin*) 10 Mg Tablet, 10 MG PO DAILY for 30 Days, #30 TAB Prov:JASON GRANADOS NP 12/05/18 Levothyroxine Sodium* (Synthroid*) 25 Mcg Tablet, 25 MCG PO BEFORE BREAKFAST, #30 TAB Prov:JOSE BAZZI PA-C 10/29/18 Lamotrigine* (Lamictal*) 100 Mg Tablet, 100 MG PO DAILY, #30 TAB Prov:JOSE BAZZI PA-C 10/29/18 Reported Medications Ibuprofen* (Ibuprofen*) 200 Mg Capsule, 200 MG PO QID PRN for PAIN, CAP 11/14/18 Multivitamins* (Theragran*) 1 Tab Tab, 1 TAB PO DAILY, TAB 11/14/18 Allergies Allergies: Coded Allergies: clindamycin (Unverified Allergy, Unknown, 11/14/18) PMhx/Soc History of Surgery: Yes (2 ) Anesthesia Reaction: No Hx Neurological Disorder: No Hx Respiratory Disorders: No Hx Cardiac Disorders: No Hx Psychiatric Problems: Yes (depression, psych problems, past IV drug user) Hx Miscellaneous Medical Probl: Yes (hypothyroidism) Hx Alcohol Use: No Hx Substance Use: Yes (recovering heroin addict) Hx Tobacco Use: No Smoking Status: Never smoker FmHx Family History: No diabetes Physical Exam Vitals Vital Signs Date Temp Pulse Resp B/P (MAP) Pulse Ox O2 O2 Flow FiO2 Time Delivery Rate 12/09/18 98.2 86 24 112/73 97 16:54 (86) Physical Exam Const: No acute distress Head: Atraumatic Eyes: Normal Conjunctiva ENT: Normal External Ears, Nose and Mouth. Tenderness to percussion of the maxillary and frontal sinuses bilaterally. Nares are congested. Neck: Full range of motion. No meningismus. Resp: Clear to auscultation bilaterally. No respiratory distress. Cardio: Regular rate and rhythm, no murmurs Skin: No petechiae or rashes Back: No midline or flank tenderness Ext: No cyanosis, or edema Neur: Awake and alert Psych: Normal Mood and Affect Procedures/MDM 33-year-old female presenting to the emergency department with signs and symptoms most consistent with acute sinusitis. No evidence to suggest meningitis, sepsis, or other emergencies. Patient stable and appropriate for fu rther outpatient management. No evidence of life-threatening pathology at time of discharge. Pt/family in agreement with discharge plan/diagnosis. Pt/family advised to return immediately with any new or worsening symptoms. Follow-up with primary care physician within the next 1-2 days. Departure Diagnosis: Primary Impression: Acute sinusitis Condition: Fair Patient Instructions: Sinusitis, Abx Tx Additional Instructions: Call your primary care doctor TOMORROW for an appointment during the next 1-2 days.See the doctor sooner or return here if your condition worsens before your appointment time. LORY BARRIOS PA-C December 09, 2018 19:17
== END 2018-12-09 17:39 | disposition home or self-care (01) ==
LOC: FTE 16:50
DX: J01.90 Acute sinusitis, unspecified (principal); E03.9 Hypothyroidism, unspecified
CPT/HCPCS: 99283

== ENCOUNTER 2018-12-14 10:55 | Emergency (ER) | payer OTHER ==
[~2018-12-14] VITALS: Ht 152.4 cm; Wt 58.8 kg
[~2018-12-14 10:55] MED LIST changes: +AZIT250T PO; +MED4DP PO
[2018-12-14 11:05] VITALS: BP 104/73; PULSE 78; RESP 16; Ht 152.4 cm; Wt 58.8 kg
[2018-12-14] MEDS ORDERED: LAMO100T83 PO (11:40)
--- NOTE | 2018-12-14 11:50 | ERD ---
ER Documentation Chief Complaint Chief Complaint ENCOUNTER FOR REFILL OF LAMICTAL HPI 33-year-old woman with a history of bipolar disorder presents for medication refill, she states she is well controlled with the Lamictal once daily but recently ran out. She denies suicidal homicidal ideation, no fevers or chills, no chest pain or shortness of breath ROS All systems reviewed and are negative except as per history of present illness. Medications Home Meds Active Scripts Lamotrigine* (Lamictal*) 100 Mg Tablet, 100 MG PO DAILY, #30 TAB Prov:ESTEFANÍA HERRERA MD 12/14/18 Fluticasone Propionate (Flonase Allergy Relief) 9.9 Ml [place].susp, 1 SPRAY NASAL BID, #1 BOTTLE TO EACH NOSTRIL Prov:LORY BARRIOS PA-C 12/09/18 Azithromycin* (Zithromax*) 250 Mg Tablet, 250 MG PO .ZPACK DIRECTED, #6 TAB TAKE 500 MG (2 TABS) THE FIRST DAY THEN 250 MG (1 TAB) DAYS 2-5 Prov:LORY BARRIOS PA-C 12/09/18 Methylprednisolone* (Medrol* DOSE PACK) 4 Mg/Dose-Pack Tab.ds.pk, 4 MG PO . DIRECTED, #1 PACKET Prov:LORY BARRIOS PA-C 12/09/18 Fluticasone Propionate (Flonase Allergy Relief) 9.9 Ml [place].susp, 1 SPRAY NASAL BID, #1 BOTTLE TO EACH NOSTRIL Prov:JASON GRANADOS NP 12/05/18 Loratadine* (Claritin*) 10 Mg Tablet, 10 MG PO DAILY for 30 Days, #30 TAB Prov:JASON GRANADOS NP 12/05/18 Levothyroxine Sodium* (Synthroid*) 25 Mcg Tablet, 25 MCG PO BEFORE BREAKFAST, #30 TAB Prov:JOSE BAZZI PA-C 10/29/18 Lamotrigine* (Lamictal*) 100 Mg Tablet, 100 MG PO DAILY, #30 TAB Prov:JOSE BAZZI PA-C 10/29/18 Reported Medications Ibuprofen* (Ibuprofen*) 200 Mg Capsule, 200 MG PO QID PRN for PAIN, CAP 11/14/18 Multivitamins* (Theragran*) 1 Tab Tab, 1 TAB PO DAILY, TAB 11/14/18 Allergies Allergies: Coded Allergies: clindamycin (Unverified Allergy, Unknown, 11/14/18) PMhx/Soc Bipolar disorder History of Surgery: Yes (2 ) Anesthesia Reaction: No Hx Neurological Disorder: No Hx Respiratory Disorders: No Hx Cardiac Disorders: No Hx Psychiatric Problems: Yes (depression, psych problems, past IV drug user) Hx Miscellaneous Medical Probl: Yes (hypothyroidism) Hx Alcohol Use: No Hx Substance Use: Yes (recovering heroin addict) Hx Tobacco Use: No Smoking Status: Never smoker FmHx Family History: No diabetes Physical Exam Vitals Vital Signs Date Temp Pulse Resp B/P (MAP) Pulse Ox O2 O2 Flow FiO2 Time Delivery Rate 12/14/18 98.4 78 16 104/73 99 11:05 (83) Physical Exam Const: No acute distress Head: Atraumatic Eyes: Normal Conjunctiva ENT: Normal External Ears, Nose and Mouth. Neck: Full range of motion. No meningismus. Resp: Clear to auscultation bilaterally Cardio: Regular rate and rhythm, no murmurs Abd: Soft, non tender, non distended. Normal bowel sounds Skin: No petechiae or rashes Back: No midline or flank tenderness Ext: No cyanosis, or edema Neur: Awake and alertX3, no focal deficits or facial asymmetry Psych: Normal Mood and Affect Procedures/MDM I agreed to refill patient's Lamictal, she stated she has follow-up with her psychiatrist early next week and also has a PMD she sees regularly. Patient feels much better at this time, and vital signs are normal, symptoms have improved. I did give strict instructions to return to the ED if symptoms continue or worsen, patient will otherwise follow-up with primary care physician. Patient understood instructions and agreed to plan. Disclaimer: Inadvertent spelling and grammatical errors are likely due to EHR/dictation software use and do not reflect on the overall quality of patient care. Also, please note that the electronic time recorded on this note does not necessarily reflect the actual time of the patient encounter. Departure Diagnosis: Primary Impression: Encounter for medication refill Additional Impression: Bipolar disorder Active/Remission status: currently active Current bipolar episode type: hypomanic Qualified Codes: F31.0 - Bipolar disorder, current episode hypomanic Condition: Good Patient Instructions: Bipolar Disorder Referrals: KEITH METZ (PCP) ESTEFANÍA HERRERA MD December 14, 2018 11:50
== END 2018-12-14 11:44 | disposition home or self-care (01) ==
LOC: E/R 10:55
DX: F31.0 Bipolar disorder, current episode hypomanic (principal); E03.9 Hypothyroidism, unspecified
CPT/HCPCS: 99281

== ENCOUNTER 2019-01-23 04:26 | Emergency (ER) | payer SELFPAY ==
[~2019-01-23] VITALS: Ht 152.4 cm; Wt 60.0 kg
[2019-01-23 04:33] VITALS: BP 127/78; PULSE 81; RESP 18; Ht 152.4 cm; Wt 60.0 kg
== END 2019-01-23 04:59 | disposition left against medical advice (07) ==
LOC: E/R 04:26
DX: Z53.21 Procedure and treatment not carried out due to patient leaving prior to being seen by health care provider (principal)

== ENCOUNTER 2019-01-25 11:15 | Emergency (ER) | payer OTHER ==
[~2019-01-25] VITALS: Ht 154.9 cm; Wt 78.0 kg
[2019-01-25 11:18] VITALS: BP 116/77; PULSE 83; RESP 18; Ht 154.9 cm; Wt 78.0 kg
[2019-01-25] MEDS ORDERED: LAMO150T3 PO (11:31)
--- NOTE | 2019-01-25 13:39 | ERD ---
ER Documentation Chief Complaint Chief Complaint FEELS STRESSED, NOT SLEPING ENOUGH, DIZZY, RIGHT FOOT PAIN X 1MOS HPI Patient is a 33-year-old female with with low thyroid who presents with dizziness. She said that she has had dizziness for a few hours. She said that she is homeless. She has not been eating well. She is been under a lot of stress. She was brought in by ambulance. She said that she needs a prescription for Lamictal 150 mg daily. Upon review of old medical records the patient has multiple visits to the ER for various complaints. Review of the emergency department information exchange system shows visits to 2 separate emergency departments for a total of 20 visits over the past 1 year. She does not currently have a primary doctor. ROS All systems reviewed and are negative except as per history of present illness. Medications Home Meds Active Scripts Lamotrigine* (Lamictal*) 150 Mg Tablet, 150 MG PO DAILY, #14 TAB Prov:ELISABETH STEWARD MD 01/25/19 Lamotrigine* (Lamictal*) 100 Mg Tablet, 100 MG PO DAILY, #30 TAB Prov:ESTEFANÍA HERRERA MD 12/14/18 Fluticasone Propionate (Flonase Allergy Relief) 9.9 Ml [place].susp, 1 SPRAY NASAL BID, #1 BOTTLE TO EACH NOSTRIL Prov:LORY BARIROS PA-C 12/09/18 Azithromycin* (Zithromax*) 250 Mg Tablet, 250 MG PO .ZPACK DIRECTED, #6 TAB TAKE 500 MG (2 TABS) THE FIRST DAY THEN 250 MG (1 TAB) DAYS 2-5 Prov:LORY BARRIOS PA-C 12/09/18 Methylprednisolone* (Medrol* DOSE PACK) 4 Mg/Dose-Pack Tab.ds.pk, 4 MG PO . DIRECTED, #1 PACKET Prov:LORY BARRIOS PA-C 12/09/18 Fluticasone Propionate (Flonase Allergy Relief) 9.9 Ml [place].susp, 1 SPRAY NASAL BID, #1 BOTTLE TO EACH NOSTRIL Prov:JASON GRANADOS NP 12/05/18 Loratadine* (Claritin*) 10 Mg Tablet, 10 MG PO DAILY for 30 Days, #30 TAB Prov:JASON GRANADOS NP 12/05/18 Levothyroxine Sodium* (Synthroid*) 25 Mcg Tablet, 25 MCG PO BEFORE BREAKFAST, #30 TAB Prov:BAZZIJOSE DELACRUZ PA-C 10/29/18 Lamotrigine* (Lamictal*) 100 Mg Tablet, 100 MG PO DAILY, #30 TAB Prov:BAZZIJOSE BARON 10/29/18 Reported Medications Ibuprofen* (Ibuprofen*) 200 Mg Capsule, 200 MG PO QID PRN for PAIN, CAP 11/14/18 Multivitamins* (Theragran*) 1 Tab Tab, 1 TAB PO DAILY, TAB 11/14/18 Allergies Allergies: Coded Allergies: clindamycin (Unverified Allergy, Unknown, 11/14/18) PMhx/Soc History of Surgery: Yes (2 ) Anesthesia Reaction: No Hx Neurological Disorder: No Hx Respiratory Disorders: No Hx Cardiac Disorders: No Hx Psychiatric Problems: Yes (depression, psych problems, past IV drug user) Hx Miscellaneous Medical Probl: Yes (hypothyroidism) Hx Alcohol Use: No Hx Substance Use: Yes (recovering heroin addict) Hx Tobacco Use: No Smoking Status: Former smoker FmHx Family History: No diabetes Physical Exam Vitals Vital Signs Date Temp Pulse Resp B/P (MAP) Pulse Ox O2 O2 Flow FiO2 Time Delivery Rate 01/25/19 98.1 83 18 116/77 99 11:18 (90) Physical Exam Const: No acute distress Head: Atraumatic Eyes: Normal Conjunctiva ENT: Normal External Ears, Nose and Mouth. Neck: Full range of motion. No meningismus. Resp: Clear to auscultation bilaterally Cardio: Regular rate and rhythm, no murmurs Abd: Soft, non tender, non distended. Normal bowel sounds Skin: No petechiae or rashes Back: No midline or flank tenderness Ext: No cyanosis, or edema Neur: Awake and alert Psych: Anxious Procedures/MDM Smoking Cessation Therapy: Pt. was lectured for greater than 3 minutes on the health risks of continued smoking and the benefits of cessation. Patient is a 33-year-old female with thyroid disease who presents with dizziness. Her vital signs are normal. She is otherwise well-appearing. I do not believe the patient requires further work-up or admission the hospital at this time. She will be provided with a list of local homeless shelters and it is daytime on a weekday. The patient can return for any worsening symptoms. Departure Diagnosis: Primary Impression: Dizziness Condition: Stable Patient Instructions: Dizziness, Unk Cause Referrals: [facility] YOU HAVE RECEIVED A MEDICAL SCREENING EXAM AND THE RESULTS INDICATE THAT YOU DO NOT HAVE A CONDITION THAT REQUIRES URGENT TREATMENT IN THE EMERGENCY DEPARTMENT. FURTHER EVALUATION AND TREATMENT OF YOUR CONDITION CAN WAIT UNTIL YOU ARE SEEN IN YOUR DOCTORS OFFICE WITHIN THE NEXT 1-2 DAYS. IT IS YOUR RESPONSIBILITY TO MAKE AN APPOINTMENT FOR FOLOW-UP CARE. IF YOU HAVE A PRIMARY DOCTOR --you should call your primary doctor and schedule an appointment IF YOU DO NOT HAVE A PRIMARY DOCTOR YOU CAN CALL OUR PHYSICIAN REFERRAL HOTLINE AT IF YOU CAN NOT AFFORD TO SEE A PHYSICIAN YOU CAN CHOSE FROM THE FOLLOWING [facility] [address] [facility]. [facility] [address] [facility]. [facility] [address] [facility] [facility] [address] [facility]. [facility] [address] [facility] [facility]. [address] Additional Instructions: Call your primary care doctor TOMORROW for an appointment during the next 1 WEEK[address]Tell the realtime court reporter that you were referred from this facility.See the doctor sooner or return here if your condition worsens before your appointment time. ELISABETH STEWARD MD Jan 25, 2019 13:39
== END 2019-01-25 11:43 | disposition home or self-care (01) ==
LOC: E/R 11:15
DX: R42 Dizziness and giddiness (principal); E03.9 Hypothyroidism, unspecified; Z87.891 Personal history of nicotine dependence
CPT/HCPCS: 99283

== ENCOUNTER 2019-01-27 13:18 | Emergency (ER) | payer OTHER ==
[~2019-01-27] VITALS: Ht 152.4 cm; Wt 57.8 kg
[~2019-01-27 13:18] MED LIST changes: +LAMO150T3 PO
[2019-01-27 13:29] VITALS: BP 105/61; PULSE 79; RESP 16; Ht 152.4 cm; Wt 57.8 kg
[2019-01-27] MEDS ORDERED: ACETAMINOPHEN 500 MG TAB PO STA (14:59)
[2019-01-27] MEDS ORDERED: KETOROLAC 60 MG INJ IM STA (14:59)
[2019-01-27] MEDS ORDERED: LIDOCAINE 1% (MPF) 5 ML VIAL INFIL ONE (15:00)
[2019-01-27] MEDS ORDERED: CEFTRIAXONE 1 GM INJ IM ONE (15:00)
[2019-01-27] MEDS ORDERED: PHEN-538 PO (15:06)
[2019-01-27] MEDS ORDERED: LAMO100T83 PO (15:06)
[2019-01-27] MEDS ORDERED: CEPH-443 PO (15:06)
[2019-01-27] MEDS ORDERED: IBUP-1544 PO (15:08)
[2019-01-27] MEDS ORDERED: ACET500C5 PO (15:08)
[2019-01-27] MEDS ORDERED: PHENAZOPYRIDINE 100 MG TAB PO ONE (15:30)
--- NOTE | 2019-01-27 19:01 | ERD ---
ER Documentation Chief Complaint Chief Complaint Hematuria, lower abd pain HPI History of Present Illness: 33-year-old female who reports a history of hypothyroid and depression coming in today with complaint of hematuria and lower abdominal pain started 2 days ago. Associated symptoms includes dysuria. Patient denies any other associated symptoms. Patient reports a recent ED visit 2 to 3 days ago in which she was given a refill for her Lamictal but patient accidentally threw prescription away and is requesting a reprint of prescription. At home pharmacological/nonpharmacological treatment for symptoms: Denies Social concerns: Homeless; Denies recent foreign travel ROS All systems reviewed and are negative except as per history of present illness. Medications Home Meds Active Scripts Acetaminophen* (Tylophen*) 500 Mg Capsule, 2 CAP PO Q6 PRN for PAIN AND OR ELEVATED TEMP, #30 CAP 1-2 tabs every 6-8 hours. 8 tabs max a day. Prov:BRIE WHARTON NP 01/27/19 Ibuprofen* (Ibuprofen*) 800 Mg Tablet, 800 MG PO Q6H PRN for INFLAMMATION/PAIN, #30 TAB Prov:BRIE WHARTON NP 01/27/19 Lamotrigine* (Lamictal*) 100 Mg Tablet, 100 MG PO DAILY, #30 TAB Prov:BRIE WHARTON NP 01/27/19 Phenazopyridine Hcl* (Pyridium*) 200 Mg Tab, 200 MG PO TID PRN for URINARY PAIN, #5 TAB Prov:BRIE WHARTON NP 01/27/19 Cephalexin* (Keflex*) 500 Mg Capsule, 500 MG PO QID for URINE INFECTION for 10 Days, CAP Prov:BRIE WHARTON NP 01/27/19 Lamotrigine* (Lamictal*) 150 Mg Tablet, 150 MG PO DAILY, #14 TAB Prov:ELISABETH STEWARD MD 01/25/19 Lamotrigine* (Lamictal*) 100 Mg Tablet, 100 MG PO DAILY, #30 TAB Prov:ESTEFANÍA HERRERA MD 12/14/18 Fluticasone Propionate (Flonase Allergy Relief) 9.9 Ml [place].susp, 1 SPRAY NASAL BID, #1 BOTTLE TO EACH NOSTRIL Prov:LORY BARRIOS PA-C 12/09/18 Azithromycin* (Zithromax*) 250 Mg Tablet, 250 MG PO .ZPACK DIRECTED, #6 TAB TAKE 500 MG (2 TABS) THE FIRST DAY THEN 250 MG (1 TAB) DAYS 2-5 Prov:LORY BARRIOS PA-C 12/09/18 Methylprednisolone* (Medrol* DOSE PACK) 4 Mg/Dose-Pack Tab.ds.pk, 4 MG PO . DIRECTED, #1 PACKET Prov:LORY BARRIOS PA-C 12/09/18 Fluticasone Propionate (Flonase Allergy Relief) 9.9 Ml [place].susp, 1 SPRAY NASAL BID, #1 BOTTLE TO EACH NOSTRIL Prov:JASON GRANADOS NP 12/05/18 Loratadine* (Claritin*) 10 Mg Tablet, 10 MG PO DAILY for 30 Days, #30 TAB Prov:JASON GRANADOS NP 12/05/18 Levothyroxine Sodium* (Synthroid*) 25 Mcg Tablet, 25 MCG PO BEFORE BREAKFAST, #30 TAB Prov:JOSE BAZZI PA-C 10/29/18 Lamotrigine* (Lamictal*) 100 Mg Tablet, 100 MG PO DAILY, #30 TAB Prov:JOSE BAZZI PA-C 10/29/18 Reported Medications Ibuprofen* (Ibuprofen*) 200 Mg Capsule, 200 MG PO QID PRN for PAIN, CAP 11/14/18 Multivitamins* (Theragran*) 1 Tab Tab, 1 TAB PO DAILY, TAB 11/14/18 Allergies Allergies: Coded Allergies: clindamycin (Unverified Allergy, Unknown, 11/14/18) PMhx/Soc Medical and Surgical Hx: pt denies Medical Hx, pt denies Surgical Hx History of Surgery: No Anesthesia Reaction: No Hx Neurological Disorder: No Hx Respiratory Disorders: No Hx Cardiac Disorders: No Hx Psychiatric Problems: No Hx Miscellaneous Medical Probl: No Hx Alcohol Use: No Hx Substance Use: No Hx Tobacco Use: No Smoking Status: Never smoker FmHx Family History: No diabetes, No coronary disease Physical Exam Vitals Vital Signs Date Temp Pulse Resp B/P (MAP) Pulse Ox O2 O2 Flow FiO2 Time Delivery Rate 01/27/19 98.0 79 16 105/61 98 13:29 (76) Physical Exam Const: No acute distress, afebrile, unkept Head: Atraumatic Eyes: Normal Conjunctiva ENT: Normal External Ears, Nose and Mouth. Neck: Full range of motion. No meningismus. Resp: Clear to auscultation bilaterally Cardio: Regular rate and rhythm, no murmurs Abd: Soft, suprapubic tenderness, non distended. No guarding, no masses, no rigidity Skin: No petechiae or rashes Back: No midline or flank tenderness Ext: No cyanosis, or edema Neur: Awake and alert x3, speaking in clear sentences, no focal deficits or facial asymmetry Psych: Normal Mood and Affect Results 24 hrs Laboratory Tests Test 01/27/19 14:10 01/27/19 14:16 Urine Color YELLOW Urine Clarity CLOUDY Urine pH 6.0 Urine Specific [place] 1.019 Urine Ketones NEGATIVE mg/dL Urine Nitrite POSITIVE mg/dL Urine Bilirubin NEGATIVE mg/dL Urine Urobilinogen NEGATIVE mg/dL Urine Leukocyte Esterase 3+ Roe/ul Urine Microscopic RBC 3 /HPF Urine Microscopic WBC > 182 /HPF Urine Squamous Epithelial Cells FEW /HPF Urine Bacteria FEW /HPF Urine Mucus MODERATE /HPF Urine Hemoglobin 2+ mg/dL Urine Glucose NEGATIVE mg/dL Urine Total Protein 1+ mg/dl POC Beta HCG, Qualitative NEGATIVE Current Medications Medications Dose Sig/Russell Start Time Status Last (Trade) Ordered Route PRN Stop Time Admin Dose Reason Admin Ketorolac 60 mg ONCE STAT 01/27/19 DC Tromethamine IM 14:59 (Toradol) 01/27/19 15:04 Ceftriaxone 1 gm ONCE ONCE 01/27/19 DC Sodium IM 15:00 (Rocephin) 01/27/19 15:04 Lidocaine 2.1 ml ONCE ONCE 01/27/19 DC (Xylocaine INFIL 15:00 1% (Mpf)) 01/27/19 15:04 1,000 mg ONCE STAT 01/27/19 DC Acetaminophen PO 14:59 (Tylenol 01/27/19 15:04 Tab) 200 mg ONCE ONCE 01/27/19 DC Phenazopyridi PO 15:30 ne HCl 01/27/19 15:31 (Pyridium) Procedures/MDM ED COURSE: ED course includes a thorough examination and history. The patient was stable throughout ED course. I kept the patient and/or family informed of laboratory and diagnostic imaging results throughout the ED course. LABS: Urinalysis: Positive for nitrites, 3+ leukocyte Estrace, over 182 WBCs, few bacteria, 2+ hemoglobin Urine negative MEDICATIONS GIVEN IN ER: Pyridium, ceftriaxone, ketorolac, acetaminophen DIAGNOSTIC IMAGING: None. PROCEDURES: None. MEDICAL DECISION MAKING: Low suspicion for life-threatening medical emergency. patient presenting with constellation of symptoms likely representing uncomplicated urinary tract infection with hematuria as characterized by history, physical exam findings, lab findings. Patient reassessment @ 1510: Unable to locate patient to give disposition. Patient discharge orders have been placed. At time of last vital sign readings, patient hemodynamically stable. At time of last assessment , no respiratory distress, otherwise relatively well appearing and nontoxic. PRESCRIPTIONS FOR HOME: Keflex, ibuprofen, acetaminophen, Lamictal DISPOSITION: Eloped At this time, patient is stable for discharge and outpatient management. DISCLAIMER: Inadvertent spelling and grammatical errors are likely due to EHR/dictation software use and do not reflect on the overall quality of patient care. Also, please note that the electronic time recorded on this note does not necessarily reflect the actual time of the patient encounter. Departure Diagnosis: Primary Impression: UTI (urinary tract infection) Urinary tract infection type: acute cystitis Hematuria presence: with hematuria Qualified Codes: N30.01 - Acute cystitis with hematuria Additional Impression: Medication refill Condition: Stable Patient Instructions: Urinary Tract Infections in Women Referrals: KEITH METZ (PCP) [facility] YOU HAVE RECEIVED A MEDICAL SCREENING EXAM AND THE RESULTS INDICATE THAT YOU DO NOT HAVE A CONDITION THAT REQUIRES URGENT TREATMENT IN THE EMERGENCY DEPARTMENT. FURTHER EVALUATION AND TREATMENT OF YOUR CONDITION CAN WAIT UNTIL YOU ARE SEEN IN YOUR DOCTORS OFFICE WITHIN THE NEXT 1-2 DAYS. IT IS YOUR RESPONSIBILITY TO MAKE AN APPOINTMENT FOR FOLOW-UP CARE. IF YOU HAVE A PRIMARY DOCTOR --you should call your primary doctor and schedule an appointment IF YOU DO NOT HAVE A PRIMARY DOCTOR YOU CAN CALL OUR PHYSICIAN REFERRAL HOTLINE AT IF YOU CAN NOT AFFORD TO SEE A PHYSICIAN YOU CAN CHOSE FROM THE FOLLOWING [facility] [address] [place] [facility] [address] [facility]. [facility] [address] [facility] [address] [facility] [address] [facility]. [facility] [address] [facility]. [facility] YOU HAVE RECEIVED A MEDICAL SCREENING EXAM AND THE RESULTS INDICATE THAT YOU DO NOT HAVE A CONDITION THAT REQUIRES URGENT TREATMENT IN THE EMERGENCY DEPARTMENT. FURTHER EVALUATION AND TREATMENT OF YOUR CONDITION CAN WAIT UNTIL YOU ARE SEEN IN YOUR DOCTORS OFFICE WITHIN THE NEXT 1-2 DAYS. IT IS YOUR RESPONSIBILITY TO MAKE AN APPOINTMENT FOR FOLOW-UP CARE. IF YOU HAVE A PRIMARY DOCTOR --you should call your primary doctor and schedule and appointment IF YOU DO NOT HAVE A PRIMARY DOCTOR YOU CAN CALL OUR PHYSICIAN REFERRAL HOTLINE AT . IF YOU CAN NOT AFFORD TO SEE A PHYSICIAN YOU CAN CHOSE FROM THE FOLLOWING [facility]: [facility] [address] [place] [address] [facility] [address] [place] [address] [facility] [address] [place] [address] Additional Instructions: Thank you very much for allowing us to participate in your care. Your health and safety is our top priority at [facility]. It is important to read all discharge instructions and education provided in your discharge packet. Call your primary care doctor TOMORROW for an appointment during the next 2-4 days and bring all the information and medications prescribed. Have prescriptions filled and follow precisely the directions on the label. -Cephalexin is an antibiotic; take this medication every day as listed on your prescription. You must complete the entire course of treatment that is listed on your prescription this is very important because it takes a certain number of days to kill the bacteria that is causing the infection. --Ibuprofen is a medication that will help with pain/inflammation. At the dosage of 600 to 800 mg, this will help with inflammation/swelling. Take this medication as prescribed. --Acetaminophen as a medication for pain and/or fever. Take this medication as needed for mild to moderate pain. This medication will not cause drowsiness. -Phenazopyridine/Pyridium is a medication that will decrease urinary pain. Take this medication as prescribed as needed. This medication will make your urine turn orange; this is a normal side effect of the medication. If the symptoms get worse and your provider is unavailable, return to the Emergency Department immediately. BRIE WHARTON NP Jan 27, 2019 19:01
== END 2019-01-27 15:56 | disposition left against medical advice (07) ==
LOC: FTE 13:18
DX: N30.01 Acute cystitis with hematuria (principal); E03.9 Hypothyroidism, unspecified; Z76.0 Encounter for issue of repeat prescription; Z59.0 Homelessness
CPT/HCPCS: 81001; 81025; 87086; J0696; Z7502; Z7610; 99283; J1885

== ENCOUNTER 2019-02-19 23:00 | Emergency (ER) | payer OTHER ==
[~2019-02-19] VITALS: Ht 152.4 cm; Wt 61.3 kg
[~2019-02-19 23:00] MED LIST changes: +ACET500C5 PO; +ALBU18HF INHALATION; +CEPH-443 PO; +IBUP-1544 PO; +LAMO150T2 PO; +PHEN-538 PO; +PRED20TA PO
[2019-02-19 23:12] VITALS: BP 108/77; PULSE 89; RESP 18; Ht 152.4 cm; Wt 61.3 kg
[2019-02-19] MEDS ORDERED: ALBUTEROL 0.5% (NEB) 2.5 MG/0.5 ML AMP INH STA (23:40)
[2019-02-19] MEDS ORDERED: predniSONE 20 MG TAB PO STA (23:40)
--- NOTE | 2019-02-20 01:31 | ERD ---
ER Documentation Chief Complaint Chief Complaint "Wheezing with chest pain and itchiness inside my chest" HPI 33-year-old female presented to the emergency department complaining of intermi ttent shortness of breath and wheezing and cough for the past week. Symptoms are moderate in severity. She denies any fevers, chills, or other symptoms at this time. ROS All systems reviewed and are negative except as per history of present illness. Medications Home Meds Active Scripts Albuterol Sulfate* (Ventolin HFA*) 18 Gm Hfa.aer.ad, 2 PUFF INHALATION Q4H, #1 INHALER Prov:LORY BARRIOS PA-C 02/20/19 Prednisone* (Prednisone*) 20 Mg Tab, 40 MG PO DAILY for 4 Days, TAB Prov:LORY BARRIOS PA-C 02/20/19 Azithromycin* (Zithromax*) 250 Mg Tablet, 250 MG PO .ZPACK DIRECTED, #6 TAB TAKE 500 MG (2 TABS) THE FIRST DAY THEN 250 MG (1 TAB) DAYS 2-5 Prov:LORY BARRIOS PA-C 02/20/19 Acetaminophen* (Tylophen*) 500 Mg Capsule, 2 CAP PO Q6 PRN for PAIN AND OR ELEVATED TEMP, #30 CAP 1-2 tabs every 6-8 hours. 8 tabs max a day. Prov:BRIE WHARTON NP 01/27/19 Ibuprofen* (Ibuprofen*) 800 Mg Tablet, 800 MG PO Q6H PRN for INFLAMMATION/PAIN, #30 TAB Prov:BRIE WHARTON NP 01/27/19 Lamotrigine* (Lamictal*) 100 Mg Tablet, 100 MG PO DAILY, #30 TAB Prov:BRIE WHARTON NP 01/27/19 Phenazopyridine Hcl* (Pyridium*) 200 Mg Tab, 200 MG PO TID PRN for URINARY PAIN, #5 TAB Prov:BRIE WHARTON NP 01/27/19 Cephalexin* (Keflex*) 500 Mg Capsule, 500 MG PO QID for URINE INFECTION for 10 Days, CAP Prov:BRIE WHARTON NP 01/27/19 Lamotrigine* (Lamictal*) 150 Mg Tablet, 150 MG PO DAILY, #14 TAB Prov:ELISABETH STEWARD MD 01/25/19 Lamotrigine* (Lamictal*) 100 Mg Tablet, 100 MG PO DAILY, #30 TAB Prov:ESTEFANÍA HERRERA MD 12/14/18 Fluticasone Propionate (Flonase Allergy Relief) 9.9 Ml [place].susp, 1 SPRAY NASAL BID, #1 BOTTLE TO EACH NOSTRIL Prov:LORY BARRIOS PA-C 12/09/18 Azithromycin* (Zithromax*) 250 Mg Tablet, 250 MG PO .ZPACK DIRECTED, #6 TAB TAKE 500 MG (2 TABS) THE FIRST DAY THEN 250 MG (1 TAB) DAYS 2-5 Prov:LORY BARRIOS PA-C 12/09/18 Methylprednisolone* (Medrol* DOSE PACK) 4 Mg/Dose-Pack Tab.ds.pk, 4 MG PO . DIRECTED, #1 PACKET Prov:LORY BARRIOS PA-C 12/09/18 Fluticasone Propionate (Flonase Allergy Relief) 9.9 Ml [place].susp, 1 SPRAY NASAL BID, #1 BOTTLE TO EACH NOSTRIL Prov:JASON GRANADOS NP 12/05/18 Loratadine* (Claritin*) 10 Mg Tablet, 10 MG PO DAILY for 30 Days, #30 TAB Prov:JASON GRANADOS NP 12/05/18 Levothyroxine Sodium* (Synthroid*) 25 Mcg Tablet, 25 MCG PO BEFORE BREAKFAST, #30 TAB Prov:JOSE BAZZI PA-C 10/29/18 Lamotrigine* (Lamictal*) 100 Mg Tablet, 100 MG PO DAILY, #30 TAB Prov:JOSE BAZZI PA-C 10/29/18 Reported Medications Ibuprofen* (Ibuprofen*) 200 Mg Capsule, 200 MG PO QID PRN for PAIN, CAP 11/14/18 Multivitamins* (Theragran*) 1 Tab Tab, 1 TAB PO DAILY, TAB 11/14/18 Allergies Allergies: Coded Allergies: clindamycin (Verified Allergy, Unknown, 02/19/19) PMhx/Soc Medical and Surgical Hx: pt denies Medical Hx History of Surgery: No Anesthesia Reaction: No Hx Neurological Disorder: No Hx Respiratory Disorders: No Hx Cardiac Disorders: No Hx Psychiatric Problems: No Hx Miscellaneous Medical Probl: No Hx Alcohol Use: No Hx Substance Use: No Hx Tobacco Use: No FmHx Family History: No diabetes Physical Exam Vitals Vital Signs Date Temp Pulse Resp B/P (MAP) Pulse Ox O2 O2 Flow FiO2 Time Delivery Rate 02/19/19 85 20 98 21 23:52 02/19/19 98.3 89 18 108/77 94 23:12 (87) Physical Exam Const: No acute distress Head: Atraumatic Eyes: Normal Conjunctiva ENT: Normal External Ears, Nose and Mouth. Neck: Full range of motion. No meningismus. Resp: No respiratory distress. No tachypnea. Scattered wheezing. No crackles. Cardio: Regular rate and rhythm, no murmurs Abd: Soft, non tender, non distended. Normal bowel sounds Skin: No petechiae or rashes Back: No midline or flank tenderness Ext: No cyanosis, or edema Neur: Awake and alert Psych: Normal Mood and Affect Results 24 hrs Current Medications Medications Dose Sig/Russell Start Time Status Last (Trade) Ordered Route PRN Stop Time Admin Dose Reason Admin Albuterol 10 mg ONCE STAT 02/19/19 DC 02/19/19 (Proventil INH 23:40 23:51 0.5% (Neb)) 02/19/19 23:41 Prednisone 60 mg ONCE STAT 02/19/19 DC (Prednisone) PO 23:40 02/19/19 23:41 Ondansetron 4 mg ONCE STAT 02/20/19 DC 02/20/19 HCl (Zofran ODT 02:01 02:06 Odt) 02/20/19 02:02 Procedures/MDM 33-year-old female presents to the emergency department with signs and symptoms most consistent with acute wheezy bronchitis. Patient was administered albuterol breathing treatment in the department with significant improvement of her symptoms. Chest x-ray revealed no acute findings. Patient's respiratory status has stabilized while in the department and is appropriate for outpatient work up. Exam and work up not consistent w/ impending respiratory failure or cardiovascular collapse. No evidence of life-threatening pathology at time of discharge. Pt/family in agreement with discharge plan/diagnosis. Pt/family advised to return immediately with any new or worsening symptoms. Follow-up with primary care physician within the next 1-2 days. Departure Diagnosis: Primary Impression: Wheezing Condition: Fair Patient Instructions: Bronchitis With Wheezing (Adult) LORY BARRIOS PA-C Feb 20, 2019 01:31
[2019-02-20] MEDS ORDERED: ONDANSETRON (ODT) 4 MG TAB ODT STA (02:01)
== END 2019-02-20 02:09 | disposition home or self-care (01) ==
LOC: FTE 23:00
DX: R06.2 Wheezing (principal)
CPT/HCPCS: 71045; 94644; Z7502; Z7610; J7512

== ENCOUNTER 2019-02-20 19:11 | Emergency (ER) | payer SELFPAY ==
[~2019-02-20] VITALS: Ht 162.6 cm; Wt 60.0 kg
[~2019-02-20 19:11] MED LIST changes: -LAMO150T2 PO
[2019-02-20 19:27] VITALS: BP 118/75; PULSE 89; RESP 18; Ht 162.6 cm; Wt 60.0 kg
== END 2019-02-21 03:03 | disposition left against medical advice (07) ==
LOC: FTE 19:11
DX: Z53.21 Procedure and treatment not carried out due to patient leaving prior to being seen by health care provider (principal)

== ENCOUNTER 2019-02-27 16:46 | Emergency (ER) | payer OTHER ==
[~2019-02-27] VITALS: Ht 152.4 cm; Wt 58.4 kg
[2019-02-27 17:05] VITALS: BP 101/62; PULSE 82; RESP 16; Ht 152.4 cm; Wt 58.4 kg
[2019-02-27] MEDS ORDERED: LAMOTRIGINE 25 MG TAB PO ONE (18:00)
[2019-02-27] MEDS ORDERED: LAMOTRIGINE 100 MG TAB PO ONE (18:00)
[2019-02-27] MEDS ORDERED: LAMO150T2 PO (18:14)
== END 2019-02-27 19:25 | disposition left against medical advice (07) ==
LOC: FTE 16:46
DX: Z76.0 Encounter for issue of repeat prescription (principal)
CPT/HCPCS: Z7502; Z7610; 99283

== ENCOUNTER 2019-03-02 12:02 | Emergency (ER) | payer SELFPAY ==
[~2019-03-02] VITALS: Wt 59.0 kg
[~2019-03-02 12:02] MED LIST changes: +LAMO150T2 PO
[2019-03-02 12:04] VITALS: BP 113/65; PULSE 91; RESP 18
--- NOTE | 2019-03-02 12:35 | ERD ---
ER Documentation Chief Complaint Chief Complaint HERE 2 DAYS AGO, LOST PX FOR LAMICTAL HPI 33-year-old female is here for prescription for Lamictal. She was seen here 2 days ago but states she lost prescription. She takes it as a mood stabilizer. No suicidal homicidal ideations. No other complaints. ROS All systems reviewed and are negative except as per history of present illness. Medications Home Meds Active Scripts Lamotrigine* (Lamictal*) 150 Mg Tablet, 150 MG PO DAILY, #30 TAB Prov:JOSE BAZZI PA-C 03/02/19 Lamotrigine* (Lamotrigine*) 150 Mg Tablet, 150 MG PO DAILY, #30 TAB Prov:LORY BARRIOS PA-C 02/27/19 Albuterol Sulfate* (Ventolin HFA*) 18 Gm Hfa.aer.ad, 2 PUFF INHALATION Q4H, #1 INHALER Prov:LORY BARRIOS PA-C 02/20/19 Prednisone* (Prednisone*) 20 Mg Tab, 40 MG PO DAILY for 4 Days, TAB Prov:LORY BARRIOS PA-C 02/20/19 Azithromycin* (Zithromax*) 250 Mg Tablet, 250 MG PO .ZPACK DIRECTED, #6 TAB TAKE 500 MG (2 TABS) THE FIRST DAY THEN 250 MG (1 TAB) DAYS 2-5 Prov:LORY BARRIOS PA-C 02/20/19 Acetaminophen* (Tylophen*) 500 Mg Capsule, 2 CAP PO Q6 PRN for PAIN AND OR ELEVATED TEMP, #30 CAP 1-2 tabs every 6-8 hours. 8 tabs max a day. Prov:BRIE WHARTON NP 01/27/19 Ibuprofen* (Ibuprofen*) 800 Mg Tablet, 800 MG PO Q6H PRN for INFLAMMATION/PAIN, #30 TAB Prov:BRIE WHARTON NP 01/27/19 Lamotrigine* (Lamictal*) 100 Mg Tablet, 100 MG PO DAILY, #30 TAB Prov:BRIE WHARTON NP 01/27/19 Phenazopyridine Hcl* (Pyridium*) 200 Mg Tab, 200 MG PO TID PRN for URINARY PAIN, #5 TAB Prov:BRIE WHARTON NP 01/27/19 Cephalexin* (Keflex*) 500 Mg Capsule, 500 MG PO QID for URINE INFECTION for 10 Days, CAP Prov:BRIE WHARTON NP 01/27/19 Lamotrigine* (Lamictal*) 150 Mg Tablet, 150 MG PO DAILY, #14 TAB Prov:ELISABETH STEWARD MD 01/25/19 Lamotrigine* (Lamictal*) 100 Mg Tablet, 100 MG PO DAILY, #30 TAB Prov:ESTEFANÍA HERRERA MD 12/14/18 Fluticasone Propionate (Flonase Allergy Relief) 9.9 Ml [place].susp, 1 SPRAY NASAL BID, #1 BOTTLE TO EACH NOSTRIL Prov:LORY BARRIOS PA-C 12/09/18 Azithromycin* (Zithromax*) 250 Mg Tablet, 250 MG PO .ZPACK DIRECTED, #6 TAB TAKE 500 MG (2 TABS) THE FIRST DAY THEN 250 MG (1 TAB) DAYS 2-5 Prov:LORY BARRIOS PA-C 12/09/18 Methylprednisolone* (Medrol* DOSE PACK) 4 Mg/Dose-Pack Tab.ds.pk, 4 MG PO . DIRECTED, #1 PACKET Prov:LORY BARRIOS PA-C 12/09/18 Fluticasone Propionate (Flonase Allergy Relief) 9.9 Ml [place].susp, 1 SPRAY NASAL BID, #1 BOTTLE TO EACH NOSTRIL Prov:JASON GRANADOS NP 12/05/18 Loratadine* (Claritin*) 10 Mg Tablet, 10 MG PO DAILY for 30 Days, #30 TAB Prov:JASON GRANADOS NP 12/05/18 Levothyroxine Sodium* (Synthroid*) 25 Mcg Tablet, 25 MCG PO BEFORE BREAKFAST, #30 TAB Prov:JOSE ABZZI PA-C 10/29/18 Lamotrigine* (Lamictal*) 100 Mg Tablet, 100 MG PO DAILY, #30 TAB Prov:JOSE BAZZI PA-C 10/29/18 Reported Medications Ibuprofen* (Ibuprofen*) 200 Mg Capsule, 200 MG PO QID PRN for PAIN, CAP 11/14/18 Multivitamins* (Theragran*) 1 Tab Tab, 1 TAB PO DAILY, TAB 11/14/18 Allergies Allergies: Coded Allergies: clindamycin (Verified Allergy, Unknown, 7/21/19) PMhx/Soc History of Surgery: Yes (csection x2) Anesthesia Reaction: No Hx Neurological Disorder: No Hx Respiratory Disorders: No Hx Cardiac Disorders: No Hx Psychiatric Problems: No Hx Miscellaneous Medical Probl: Yes (hypothyroids) Hx Alcohol Use: No Hx Substance Use: No Hx Tobacco Use: No FmHx Family History: No diabetes Physical Exam Vitals Vital Signs Date Temp Pulse Resp B/P (MAP) Pulse Ox O2 O2 Flow FiO2 Time Delivery Rate 03/02/19 97.3 91 18 113/65 99 12:04 (81) Physical Exam Const: No acute distress Head: Atraumatic Eyes: Normal Conjunctiva ENT: Normal External Ears, Nose and Mouth. Neck: Full range of motion. No meningismus. Resp: Clear to auscultation bilaterally Cardio: Regular rate and rhythm, no murmurs Procedures/MDM Prescription refill given. Patient counseled regarding my diagnostic impression and care plan. Prior to discharge all questions answered. Pt agrees with treatment plan and understands strict return precautions. Pt is instructed to follow up with primary care provider within 24-48 hours. Precautionary in structions provided including instructions to return to the ER if not improving or for any worsening or changing symptoms or concerns. Departure Diagnosis: Primary Impression: Encounter for medication refill Condition: Stable Patient Instructions: Taking Medicine Safely Additional Instructions: Call your primary care doctor TOMORROW for an appointment during the next 1-2 days.See the doctor sooner or return here if your condition worsens before your appointment time. JOSE BAZZI PA-C Mar 02, 2019 12:35
== END 2019-03-02 12:35 | disposition home or self-care (01) ==
LOC: E/R 12:02
DX: Z76.0 Encounter for issue of repeat prescription (principal)
CPT/HCPCS: 99281

== ENCOUNTER 2019-03-03 12:18 | Emergency (ER) | payer SELFPAY ==
[~2019-03-03] VITALS: Ht 152.4 cm; Wt 59.1 kg
[~2019-03-03 12:18] MED LIST changes: +DIAZ5TAB PO; +METR500T PO
[2019-03-03 12:28] VITALS: BP 133/80; PULSE 71; RESP 18; Ht 152.4 cm; Wt 59.1 kg
== END 2019-03-03 13:46 | disposition home or self-care (01) ==
LOC: FTE 12:18
DX: R19.7 Diarrhea, unspecified (principal); E03.9 Hypothyroidism, unspecified
CPT/HCPCS: 99283

== ENCOUNTER 2019-03-10 02:18 | Emergency (ER) | payer SELFPAY ==
[~2019-03-10] VITALS: Ht 157.5 cm; Wt 60.0 kg
[~2019-03-10 02:18] MED LIST changes: -DIAZ5TAB PO; -METR500T PO
[2019-03-10 02:22] VITALS: Ht 157.5 cm; Wt 60.0 kg
--- NOTE | 2019-03-10 03:52 | ERD ---
ER Documentation Chief Complaint Chief Complaint DYSURIA X SEVERAL DAYS. HPI 33-year-old femalePresenting to the emergency department complaining of dysuria intermittently for the past 2 days. She is also had chills and bilateral mid back pain. Symptoms are moderate to severe. She tried no medication for relief of symptoms. She denies any fevers, abdominal pain, nausea, vomiting, diarrhea, or other symptoms at this time. ROS All systems reviewed and are negative except as per history of present illness. Medications Home Meds Active Scripts Cephalexin* (Keflex*) 500 Mg Capsule, 500 MG PO QID for 7 Days, CAP Prov:LORY BARRIOS PA-C 03/10/19 Lamotrigine* (Lamictal*) 150 Mg Tablet, 150 MG PO DAILY, #30 TAB Prov:JOSE BAZZI PA-C 03/02/19 Lamotrigine* (Lamotrigine*) 150 Mg Tablet, 150 MG PO DAILY, #30 TAB Prov:LORY BARRIOS PA-C 02/27/19 Albuterol Sulfate* (Ventolin HFA*) 18 Gm Hfa.aer.ad, 2 PUFF INHALATION Q4H, #1 INHALER Prov:LORY BARRIOS PA-C 02/20/19 Prednisone* (Prednisone*) 20 Mg Tab, 40 MG PO DAILY for 4 Days, TAB Prov:LORY BARRIOS PA-C 02/20/19 Azithromycin* (Zithromax*) 250 Mg Tablet, 250 MG PO .ZPACK DIRECTED, #6 TAB TAKE 500 MG (2 TABS) THE FIRST DAY THEN 250 MG (1 TAB) DAYS 2-5 Prov:LORY BARRIOS PA-C 02/20/19 Acetaminophen* (Tylophen*) 500 Mg Capsule, 2 CAP PO Q6 PRN for PAIN AND OR ELEVATED TEMP, #30 CAP 1-2 tabs every 6-8 hours. 8 tabs max a day. Prov:BRIE WHRATON NP 01/27/19 Ibuprofen* (Ibuprofen*) 800 Mg Tablet, 800 MG PO Q6H PRN for INFLAMMATION/PAIN, #30 TAB Prov:BREI WHARTON NP 01/27/19 Lamotrigine* (Lamictal*) 100 Mg Tablet, 100 MG PO DAILY, #30 TAB Prov:BRIE WHARTON [employer] 01/27/19 Phenazopyridine Hcl* (Pyridium*) 200 Mg Tab, 200 MG PO TID PRN for URINARY PAIN, #5 TAB Prov:BRIE WHARTON [employer] COUNSEL[employer] 01/27/19 Cephalexin* (Keflex*) 500 Mg Capsule, 500 MG PO QID for URINE INFECTION for 10 Days, CAP Prov:BRIE WHARTON NP 01/27/19 Lamotrigine* (Lamictal*) 150 Mg Tablet, 150 MG PO DAILY, #14 TAB Prov:ELISABETH STEWARD MD 01/25/19 Lamotrigine* (Lamictal*) 100 Mg Tablet, 100 MG PO DAILY, #30 TAB Prov:ESTEFANÍA HERRERA MD 12/14/18 Fluticasone Propionate (Flonase Allergy Relief) 9.9 Ml [place].susp, 1 SPRAY NASAL BID, #1 BOTTLE TO EACH NOSTRIL Prov:LORY BARRIOS PA-C 12/09/18 Azithromycin* (Zithromax*) 250 Mg Tablet, 250 MG PO .CesarPARICCI DIRECTED, #6 TAB TAKE 500 MG (2 TABS) THE FIRST DAY THEN 250 MG (1 TAB) DAYS 2-5 Prov:LORY BARRIOS PA-C 12/09/18 Methylprednisolone* (Medrol* DOSE PACK) 4 Mg/Dose-Pack Tab.ds.pk, 4 MG PO . DIRECTED, #1 PACKET Prov:LORY BARRIOS PA-C 12/09/18 Fluticasone Propionate (Flonase Allergy Relief) 9.9 Ml [place].susp, 1 SPRAY NASAL BID, #1 BOTTLE TO EACH NOSTRIL Prov:JASON GRANADOS NP 12/05/18 Loratadine* (Claritin*) 10 Mg Tablet, 10 MG PO DAILY for 30 Days, #30 TAB Prov:JASON GRANADOS NP 12/05/18 Levothyroxine Sodium* (Synthroid*) 25 Mcg Tablet, 25 MCG PO BEFORE BREAKFAST, #30 TAB Prov:JOSE BAZZI PA-C 10/29/18 Lamotrigine* (Lamictal*) 100 Mg Tablet, 100 MG PO DAILY, #30 TAB Prov:JOSE BAZZI PA-C 10/29/18 Reported Medications Ibuprofen* (Ibuprofen*) 200 Mg Capsule, 200 MG PO QID PRN for PAIN, CAP 11/14/18 Multivitamins* (Theragran*) 1 Tab Tab, 1 TAB PO DAILY, TAB 11/14/18 Allergies Allergies: Coded Allergies: clindamycin (Verified Allergy, Unknown, 02/19/19) PMhx/Soc History of Surgery: Yes () Anesthesia Reaction: No Hx Neurological Disorder: No Hx Respiratory Disorders: No Hx Cardiac Disorders: No Hx Psychiatric Problems: No Hx Miscellaneous Medical Probl: Yes (Hyperthyroidism) Hx Alcohol Use: No Hx Substance Use: Yes (Formerly) Hx Tobacco Use: No (5 cigarette sticks/day) Smoking Status: Current every day smoker Physical Exam Vitals Vital Signs Date Temp Pulse Resp B/P (MAP) Pulse Ox O2 O2 Flow FiO2 Time Delivery Rate 03/10/19 97.9 84 16 134/74 99 Room Air 05:35 (94) 03/10/19 98.0 90 16 140/80 99 02:22 (100) Physical Exam Const: No acute distress Head: Atraumatic Eyes: Normal Conjunctiva ENT: Normal External Ears, Nose and Mouth. Neck: Full range of motion. No meningismus. Resp: Clear to auscultation bilaterally Cardio: Regular rate and rhythm, no murmurs Abd: Soft, non tender, non distended. Normal bowel sounds Skin: No petechiae or rashes Back: No midline or flank tenderness. No CVA tenderness. Ext: No cyanosis, or edema Neur: Awake and alert Psych: Normal Mood and Affect Results 24 hrs Laboratory Tests Test 03/10/19 02:55 03/10/19 03:00 03/10/19 03:02 Urine Color STRAW Urine Clarity CLEAR Urine pH 8.0 Urine Specific [place] 1.006 Urine Ketones NEGATIVE mg/dL Urine Nitrite NEGATIVE mg/dL Urine Bilirubin NEGATIVE mg/dL Urine Urobilinogen NEGATIVE mg/dL Urine Leukocyte Esterase 1+ Roe/ul Urine Microscopic RBC 1 /HPF Urine Microscopic WBC 37 /HPF Urine Bacteria FEW /HPF Urine Hemoglobin NEGATIVE mg/dL Urine Glucose NEGATIVE mg/dL Urine Total Protein NEGATIVE mg/dl Bedside Urine pH (LAB) 7.5 Bedside Urine Protein (LAB) Negative Bedside Urine Glucose (UA) Negative Bedside Urine Ketones (LAB) Negative Bedside Urine Blood Trace-intact Bedside Urine Nitrite (LAB) Negative Bedside Urine Leukocyte Esterase 1+ (L POC Beta HCG, Qualitative NEGATIVE Current Medications Medications Dose Sig/Russell Start Time Status Last (Trade) Ordered Route PRN Stop Time Admin Dose Reason Admin Ceftriaxone 1 gm ONCE ONCE 03/10/19 DC 03/10/19 Sodium IM 05:00 03/10/19 04:55 (Rocephin) 05:01 Lidocaine 20 ml ONCE ONCE 03/10/19 DC 03/10/19 (Xylocaine SC 05:00 03/10/19 04:55 1% (Mdv) 20 05:01 ml) Procedures/MDM 33-year-old female presents complaining of dysuria and back pain. Patient's vital signs are stable. Patient is nontoxic and well-appearing. She is afebrile. Urinalysis revealed leukocyte esterase consistent with urinary tract infection. No evidence to suggest sepsis, serious bacterial infection, acute surgical abdomen, a sending infection, or other emergent process. Patient will be discharged home in stable condition with prescriptions. She was advised to return immediately for any new or concerning symptoms and have close follow-up with her primary care physician. I shared my medical decision making with the patient and she understands and agrees with the plan. Departure Diagnosis: Primary Impression: Dysuria Condition: Fair Additional Instructions: Follow up with your PCP within the next 1-3 days for a repeat evaluation. If you require a referral to a specialist, your Primary Care Provider may be able to provide this for you. In most patient cases, a referral is not required. If you have further questions regarding this matter, please ask your Primary Care Provider. Return the the emergency department immediately if symptoms worsen or change. If you have any questions regarding medications, ask your pharmacist or us before you leave. If any adverse reactions, occur while taking your medications, discontinue the treatment and return to the emergency department immediately. If any new or worsening symptoms, uncontrolled fevers, or other unexplained symptoms occur, return to the emergency department immediately. Take your medications as directed, and complete the entire course of treatment. LORY BARRIOS PA-C Mar 10, 2019 03:52
[2019-03-10] MEDS ORDERED: LIDOCAINE 1% (MDV) 20 ML INJ SC ONE (05:00)
[2019-03-10] MEDS ORDERED: CEFTRIAXONE 1 GM INJ IM ONE (05:00)
[2019-03-10 05:35] VITALS: BP 134/74; PULSE 84; RESP 16
== END 2019-03-10 05:30 | disposition home or self-care (01) ==
LOC: FTE 02:18
DX: R30.0 Dysuria (principal); F17.210 Nicotine dependence, cigarettes, uncomplicated
CPT/HCPCS: 81001; 81025; 87086; 96372; 99284; J0696; 81003

== ENCOUNTER 2019-04-08 17:02 | Emergency (ER) | payer MEDICAID ==
[~2019-04-08] VITALS: Ht 157.5 cm; Wt 66.0 kg
[~2019-04-08 17:02] MED LIST changes: +DIAZ5TAB PO; +METR500T PO
[2019-04-08] MEDS ORDERED: IPRATROPIUM (NEB) 0.5 MG/2.5 ML AMP NEB STA (17:06)
[2019-04-08] MEDS ORDERED: predniSONE 20 MG TAB PO STA (17:06)
[2019-04-08] MEDS ORDERED: ALBUTEROL 0.083% (NEB) 2.5 MG/3 ML AMP NEB STA (17:06)
[2019-04-08 17:24] VITALS: Ht 157.5 cm; Wt 66.0 kg
[2019-04-08 18:00] VITALS: BP 106/81; PULSE 78; RESP 16
== END 2019-04-08 18:00 | disposition home or self-care (01) ==
LOC: E/R 17:02
DX: J45.901 Unspecified asthma with (acute) exacerbation (principal); E03.9 Hypothyroidism, unspecified
CPT/HCPCS: 94664; J7512; Z7502; Z7610

== ENCOUNTER 2019-04-10 01:12 | Emergency (ER) | payer MEDICAID ==
[~2019-04-10] VITALS: Ht 160 cm; Wt 59.1 kg
[2019-04-10 01:14] VITALS: Ht 160 cm; Wt 59.1 kg
[2019-04-10] MEDS ORDERED: ALBUTEROL 0.083% (NEB) 2.5 MG/3 ML AMP NEB STA (01:50)
[2019-04-10] MEDS ORDERED: IPRATROPIUM (NEB) 0.5 MG/2.5 ML AMP NEB STA (01:50)
[2019-04-10] MEDS ORDERED: DIAZEPAM 5 MG TAB PO ONE (02:00)
[2019-04-10 03:30] VITALS: BP 108/75; PULSE 67; RESP 14
== END 2019-04-10 03:30 | disposition home or self-care (01) ==
LOC: E/R 01:12
DX: F41.9 Anxiety disorder, unspecified (principal); R40.2142 Coma scale, eyes open, spontaneous, at arrival to emergency department; R40.2252 Coma scale, best verbal response, oriented, at arrival to emergency department; R40.2362 Coma scale, best motor response, obeys commands, at arrival to emergency department; N76.0 Acute vaginitis; J45.901 Unspecified asthma with (acute) exacerbation; E03.9 Hypothyroidism, unspecified; Z87.891 Personal history of nicotine dependence
CPT/HCPCS: 81003; 81025; 87591; 94664; Z7502; Z7610

== ENCOUNTER 2019-04-10 17:27 | Emergency (ER) | payer MEDICAID ==
[~2019-04-10] VITALS: Ht 160 cm; Wt 58.0 kg
[2019-04-10 17:38] VITALS: BP 132/60; PULSE 68; RESP 18; Ht 160 cm; Wt 58.0 kg
== END 2019-04-10 17:51 | disposition home or self-care (01) ==
LOC: E/R 17:27
DX: J40 Bronchitis, not specified as acute or chronic (principal); E03.9 Hypothyroidism, unspecified
CPT/HCPCS: 99283